=== PATIENT | female | born 1975 | race Caucasian/White ===

== ENCOUNTER 2020-04-25 06:52 | Outpatient (REF) | payer OTHER, SELFPAY ==
[2020-04-25 07:17] LABS: COVID-19 Test Negative (Negative)
== END 2020-04-25 06:53 | disposition home or self-care (01) ==
LOC: HO.LAB 06:52
PROVIDERS: Visit Provider Internal Medicine
DX: Z20.828 Contact with and (suspected) exposure to other viral communicable diseases (principal)
CPT/HCPCS: 87635; C9803

== ENCOUNTER 2020-04-28 07:07 | Outpatient (REF) | payer OTHER, SELFPAY ==
[2020-04-28 08:07] LABS: COVID-19 Test Negative (Negative)
== END 2020-04-28 07:08 | disposition home or self-care (01) ==
LOC: HO.EMPCOV 07:07
PROVIDERS: PCP Internal Medicine; Visit Provider Internal Medicine
DX: Z20.828 Contact with and (suspected) exposure to other viral communicable diseases (principal)
CPT/HCPCS: 87635; C9803

== ENCOUNTER 2020-05-01 06:59 | Outpatient (REF) | payer OTHER, SELFPAY ==
[2020-05-01 07:29] LABS: COVID-19 Test Negative (Negative); IDNOW Serial# 55D5AD1C
[2020-05-03 09:15] LABS: COVID-19 Test Negative (Negative); IDNOW Serial# 55D5AD1C
== END 2020-05-01 07:00 | disposition home or self-care (01) ==
LOC: HO.EMPCOV 06:59
PROVIDERS: Visit Provider Internal Medicine
DX: Z20.828 Contact with and (suspected) exposure to other viral communicable diseases (principal)
CPT/HCPCS: 87635; C9803

== ENCOUNTER 2020-05-16 09:13 | Outpatient (REF) | payer OTHER, SELFPAY ==
[2020-05-16 09:48] LABS: COVID-19 Test Negative (Negative); IDNOW Serial# 55D5AD1C
== END 2020-05-16 09:14 | disposition home or self-care (01) ==
LOC: HO.EMPCOV 09:13
PROVIDERS: Visit Provider Internal Medicine
DX: Z20.828 Contact with and (suspected) exposure to other viral communicable diseases (principal)
CPT/HCPCS: 87635; C9803

== ENCOUNTER 2020-07-25 11:30 | Outpatient (REF) | payer OTHER, SELFPAY ==
[2020-07-25 11:51] LABS: COVID-19 Test Negative (Negative)
== END 2020-07-25 11:31 | disposition home or self-care (01) ==
LOC: HO.EMPCOV 11:30
PROVIDERS: Visit Provider Internal Medicine
DX: Z20.822 Contact with and (suspected) exposure to COVID-19 (principal)
CPT/HCPCS: 36415; 87635; C9803

== ENCOUNTER 2020-10-15 12:30 | Outpatient (REF) | payer OTHER, SELFPAY ==
--- NOTE | ~2020-10-15 | US_ITS ---
EXAMINATION: US THYROID CLINICAL INFORMATION: Nontoxic single thyroid nodule. COMPARISON: Ultrasound soft tissue head/neck thyroid dated 06/26/2019 and 12/27/2018 TECHNIQUE: Linear transducer guillaume-scale and color Doppler examination with attention to the region of the thyroid. FINDINGS: SIZE: Measurements of the thyroid lobes and nodules are given in sagittal, anteroposterior and transverse dimensions respectively. Right Thyroid Lobe: 4.8 x 1.8 x 1.7 cm, volume 7.7 mL. Previously 5.3 x 1.3 x 1.7 cm, volume 5.7 mL. Parenchyma: The gland echotexture is homogeneous. Thyroid vascularity is normal. Left Thyroid Lobe: 3.9 x 1.0 x 1.3 cm, volume 2.8 mL. Previously 4.2 x 1.0 x 1.2 cm, volume 2.7 mL. Parenchyma: The gland echotexture is homogeneous. Thyroid vascularity is normal. Isthmus: 0.5 cm in maximum AP dimension. Previously 0.6 cm. Estimated total number of nodules greater than or equal to 1 cm: 0. 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 Location: Left inferior. Size: 0.3 x 0.2 x 0.2 cm, volume 0.01 mL. Previously: 0.7 x 0.5 x 0.6 cm, volume 0.11 mL. Nodule characteristics: Composition: Solid (2). Echogenicity: Very hypoechoic (3). Shape: Not taller than wide (0). Margins: Smooth (0). Echogenic Foci: None (0). ACR TI-RADS total points: 5 ACR TI-RADS category: 4 Significant change in size (>/= 20% in 2 dimensions and minimal increase of 2 mm or 50% or greater increase in volume): Decreased in size. Change in features: None. Change in ACR TI-RADS risk category: Not applicable. NODES: No lymphadenopathy is seen in the tissue surrounding the thyroid gland. US/US thyroid IMPRESSION: Subcentimeter left thyroid complex nodule lower pole, improved in size from previous study. Recommend 1-year followup. Otherwise, the rest of the thyroid gland ultrasound is unremarkable. ACR TI-RADS RECOMMENDATION REFERENCE: Ultrasound-guided fine-needle aspiration, followup ultrasound, no further followup. * TR1 (0 point) and TR 2 (2 points): No FNA or followup. * TR3 (3 points): FNA if more than or equal to 2.5 cm in maximum dimension, followup ultrasound in 1, 3 and 5 years if 1.5 to 2.4 cm in maximum dimension. * TR4 (4-6 points): FNA if more than or equal to 1.5 cm in maximum dimension, followup ultrasound in 1, 2, 3 and 5 years if 1 to 1.4 cm in maximum dimension. * TR5 (more than or equal to 7 points): FNA if more than or equal to 1 cm in maximum dimension, followup ultrasound every year for 5 years if 0.5 to 0.9 cm in maximum dimension. * TR3, TR4 or TR5 nodules that are below the size threshold for followup receive no followup.
== END 2020-10-15 12:31 | disposition home or self-care (01) ==
LOC: HO.US 12:30
PROVIDERS: PCP Internal Medicine; Visit Provider Internal Medicine
DX: E04.1 Nontoxic single thyroid nodule (principal)
CPT/HCPCS: 76536

== ENCOUNTER 2021-05-11 07:17 | Outpatient (REF) | payer OTHER, SELFPAY ==
--- NOTE | ~2021-05-11 | MM_ITS ---
EXAMINATION: MM SCREENING DIGITAL BREAST TOMOSYNTHESIS, BILATERAL CLINICAL INFORMATION: Screening. Asymptomatic. The lifetime risk of breast cancer based on the Tyrer-Cuzick Model is 15%. COMPARISON: Mammography: 08/15/2017, 09/26/2014 TECHNIQUE: Digital breast tomosynthesis is performed in both the craniocaudal and mediolateral oblique views along with computer-aided detection (CAD). Synthesized 2D images are generated from the tomosynthesis. FINDINGS: There are scattered areas of fibroglandular density (ACR BI-RADS breast composition Category b). There is asymmetry of the breast size, right slightly larger, similar to prior studies. The left breast shows no interval mass or architectural abnormality. Neither breast shows abnormal calcifications. The axilla and skin contours are unremarkable. Small asymmetric density posterior central right breast on CC view 11 cm from nipple is more conspicuous when compared with prior studies. There is no definite correlate on MLO view and this may represent summation artifact and/or shifting island fibroglandular tissue. Patient will be recalled to further characterize. MM/MM tomosynthesis screening BI IMPRESSION: 1. Right: Asymmetric density posterior central breast on CC view, possibly island shifting fibroglandular tissue or summation artifact. 2. Left: No mammographic evidence of malignancy. ASSESSMENT: BI-RADS 0: Incomplete - Need Additional Imaging Evaluation RECOMMENDATION: 1. Additional views of the right breast (spot CC, rolled CC x2). 2. Targeted ultrasound if warranted after review of the additional views. 3. Radiology department staff will contact the patient for additional imaging. This patient's information was entered into a reminder system with a target due date for their next mammogram.
== END 2021-05-11 07:18 | disposition home or self-care (01) ==
LOC: HO.MAMMO 07:17
PROVIDERS: PCP Internal Medicine; Visit Provider Internal Medicine
DX: Z12.31 Encounter for screening mammogram for malignant neoplasm of breast (principal)
CPT/HCPCS: 77063; 77067

== ENCOUNTER 2021-05-14 13:19 | Outpatient (REF) | payer OTHER, SELFPAY ==
--- NOTE | ~2021-05-14 | MM_ITS ---
EXAMINATION: MM DIAGNOSTIC DIGITAL BREAST TOMOSYNTHESIS, RIGHT CLINICAL INFORMATION: Recall from screening for asymmetric density on CC view posterior central breast, possibly island shifting fibroglandular tissue or summation artifact. COMPARISON: Mammography: 05/11/2021, 08/15/2017 TECHNIQUE: Digital breast tomosynthesis is performed. 2D images are generated from the tomosynthesis. The following views are obtained: Spot CC, rolled CC x2. FINDINGS: There are scattered areas of fibroglandular density (ACR BI-RADS breast composition Category b). Additional views show no persistent asymmetric density. There is no mass or architectural abnormality. Results are discussed with the patient at time of visit. MM/MM tomosynthesis added views R IMPRESSION: Additional views show no persistent asymmetric density. ASSESSMENT: BI-RADS 1: Negative RECOMMENDATION: Routine annual mammography screening. This patient's information was entered into a reminder system with a target due date for their next mammogram.
== END 2021-05-14 13:20 | disposition home or self-care (01) ==
LOC: HO.MAMMO 13:19
PROVIDERS: Visit Provider Internal Medicine
DX: R92.2 Inconclusive mammogram (principal)
CPT/HCPCS: 77061; 77065

== ENCOUNTER → 2021-06-29 14:04 | Outpatient (BNVA) | payer OTHER, SELFPAY | PROVIDERS: PCP Internal Medicine; Visit Provider Nurse Practitioner Gerontology | DX: E11.9 Type 2 diabetes mellitus without complications (principal); E66.09 Other obesity due to excess calories; I10 Essential (primary) hypertension; R00.0 Tachycardia, unspecified; Z79.84 Long term (current) use of oral hypoglycemic drugs; Z68.41 Body mass index [BMI] 40.0-44.9, adult | CPT/HCPCS: 82947 ==

== ENCOUNTER → 2021-07-06 08:23 | Outpatient (BNVA) | payer OTHER, SELFPAY | PROVIDERS: PCP Internal Medicine; Referring Provider Internal Medicine; Visit Provider Internal Medicine | DX: R00.0 Tachycardia, unspecified (principal); I10 Essential (primary) hypertension; E11.8 Type 2 diabetes mellitus with unspecified complications | CPT/HCPCS: 93005 ==

== ENCOUNTER 2021-07-06 08:57 | Outpatient (REF) | payer OTHER, SELFPAY ==
[2021-07-06 10:55] LABS: Microalbum/Creatinine Ratio Ur 16.4 ug/mg cr
[2021-07-06 11:07] LABS: Alanine Aminotransferase 20 U/L (0-31); Albumin Level 4.7 g/dL (3.5-5.0); Alkaline Phosphatase 98 U/L (39-117); Anion Gap 17 (12-20); Aspartate Amino Transferase 18 U/L (5-31); Bilirubin Total 1.3 mg/dL (0.0-1.0); Blood Urea Nitrogen 19 mg/dL (9-16); Calcium 10.1 mg/dL (8.4-10.2); Carbon Dioxide 25 mmol/L (22-29); Chloride 100 mmol/L (96-108); Cholesterol 210 mg/dL; Estimated Glomerular Filt Rate 46; Glucose Fasting 177 mg/dL (60-99); HDL Cholesterol 52 mg/dL; LDL Cholesterol Calculated 136 mg/dl; Potassium 4.5 mmol/L (3.3-5.1); Sodium 137 mmol/L (135-145); Total Protein 8.1 g/dL (6.5-8.0); Triglycerides 111 mg/dL
[2021-07-06 11:15] LABS: Free T4 (Free Thyroxine) 1.04 ng/dL (0.71-1.85); Thyroid Stimulating Hormone 0.96 uIU/mL (0.32-4.0); Vitamin D 25-OH Total 10.6 ng/mL (>30)
[2021-07-06 11:33] LABS: Vitamin B12 489 pg/mL (200-900)
[2021-07-07 14:17] LABS: LDL Cholesterol Direct 153 mg/dL (<100)
== END 2021-07-06 08:58 | disposition home or self-care (01) ==
LOC: HO.10HDL 08:57
PROVIDERS: Visit Provider Nurse Practitioner Gerontology
DX: E11.9 Type 2 diabetes mellitus without complications (principal)
CPT/HCPCS: 36415; 80053; 80061; 82043; 82306; 82607; 83721; 84439; 84443

== ENCOUNTER → 2021-07-08 07:24 | Outpatient (REF) | payer OTHER, SELFPAY ==
--- NOTE | 2021-07-08 07:28 | HM_ITS ---
Total monitoring time 4 days and 6 hours. Underlying rhythm is sinus. Minimum heart rate 70/Min. Maximum 163/Min. Average 102/Min. About 50% of the time, ventricular rate > 100/Min. No atrial fibrillation or flutter or AV blocks or pauses. Very rare supraventricular ectopy with minimal burden. Very rare ventricular ectopy with minimal burden. Patient symptoms including dizziness, near-syncope correlate with sinus tachycardia. MTDD
--- NOTE | 2021-07-08 07:28 | CA_ITS ---
Transthoracic Echocardiogram Patient (Last, First, Middle): Ema Pradhan, Gender: Female Date of : 1975 Age: 46 Procedure Date: 07/08/2021 Procedure Type: Transthoracic Echocardiogram Location: OP Height: 160.02 cm Weight: 104.33 kg BSA: 2.05 m2 Heart Rate: bpm BP: 118 / 79 mmHg Car Wiper: OLIVA Referring MD: Yonathan Fu MD Manager Center: Kiran Jimenez MD Symptoms: R00.0 - Tachycardia, unspecified Study Quality: Fair ECG Rhythm: Sinus Conclusions: - 1. Normal LV systolic function with LVEF of 55-60% with grade 1 diastolic dysfunction 2. Normal cardiac valvular Doppler 3. No gross pericardial effusion Findings Left Ventricle Normal left ventricular size, thickness, and systolic function. The visually estimated ejection fraction is between 55-60%. Regional wall motion abnormalities can not be excluded due to suboptimal endocardial definition. Spectral Doppler is indicative of an impaired relaxation filling pattern. E/E prime ratio is <8, consistent with normal filling pressures. Evidence suggests grade I (mild) diastolic dysfunction. Right Ventricle Normal right ventricular cavity size and systolic function. Atria The left atrium is normal in size. There is a mobile atrial septum noted. Interatrial shunt cannot be excluded. The right atrium is normal in size. Aortic Valve The aortic valve structure and function is likely normal. There is no aortic valve stenosis. There is no aortic valve regurgitation. Mitral Valve Likely normal mitral valve structure and function. There is trace mitral valve regurgitation. There is no mitral valve stenosis. Pulmonic Valve The pulmonic valve was not well visualized. Tricuspid Valve The tricuspid valve was not well visualized. Tricuspid regurgitation envelope is inadequate for calculation of right ventricular systolic pressure. Great Vessels All visible segments of the aorta are normal in size. The pulmonary artery was not well visualized. Venous The inferior vena cava is normal in size and collapses greater than 50% with inspiration. Pericardium/Pleural There is no evidence of pericardial effusion. Prior Study Comparison No significant change compared to prior study dated: 07/03/2018. Measurements 2D Linear Measurements IVSd: 1.07 0.6-0.9/0.6-1.0 cm LVIDd: 4.06 3.9-5.3/4.2-5.9 cm LVIDd Index: 1.98 2.4-3.2/2.2-3.1 cm/m2 LVIDs: 2.88 2.0-3.6 cm LVPWd: 0.87 0.7-1.1 cm Ao Root: 3.40 2.1-3.5 cm LA Diam: 3.30 2.7-3.8/3.0-4.0 cm LAIDs Index: 1.61 1.5-2.3 cm/m2 LV Mass: 155.04 67-162/88-224 g LV Mass Index: 75.63 43-95/49-115 g/m2 LVOT Diam: 2.00 3.0+(-)1.3 cm 2D Systolic Function EF 4C: 55.60 >55% EF 2C: 59.50 >55% EF BiP: 56.40 >55% Mitral Valve MV Pk E: 0.54 MV PK A: 0.61 MV Decel Time: 195.00 E/A: 0.90 E'Lateral: 7.83 E'Medial: 6.20 E/E' Med: 8.70 E/E' Lat: 6.90 PHT: 57.00 MVA PHT: 3.86 Decel Spalding: 2.77 Aortic Valve AoV Pk Reynaldo: 1.15 AoV Mn Reynaldo: 0.79 AoV VTI: 0.20 AoV Pk Grad: 5.00 Aov Mn Grad: 3.00 LORENZA Cont.VTI: 2.44 LVOT LVOT Pk Reynaldo: 1.00 LVOT Mn Reynaldo: 0.74 LVOT VTI: 0.16 LVOT Pk Grad: 4.00 LVOT Mn Grad: 2.00 LVOT Diam: 2.00 LVOT Area: 3.14 Diastolic Function MV Pk E: 0.54 MV Pk A: 0.61 E/A: 0.90 E'Medial: 6.20 E/E' Med: 8.70 E' Laterial: 7.83 E/E' Lat: 6.90 Right Ventricle TAPSE (mm): 16.30 TVS' Reynaldo: 7.94 Tricuspid Valve TR Pk Reynaldo: 1.34 TR Pk Grad: 7.00 Great Vessels Aorta Ao Root-2D: 3.40 2.0-3.7 cm Ao Asc: 3.20 2.1-3.4 cm Ao Arch: 2.90 Updated in Other Vendor System with Status of Final Kiran Jimenez MD electronically signed on 07/08/2021 7:15:57 PM with status of Final
== END ==
LOC: HO.CARD 07:24
PROVIDERS: Visit Provider Internal Medicine
DX: R00.0 Tachycardia, unspecified (principal)
CPT/HCPCS: 93242; 93306

== ENCOUNTER → 2021-07-16 13:20 | Outpatient (BNVA) | payer OTHER, SELFPAY | PROVIDERS: PCP Internal Medicine; Visit Provider Dietitian, Registered | DX: E11.8 Type 2 diabetes mellitus with unspecified complications (principal); Z71.3 Dietary counseling and surveillance | CPT/HCPCS: 97802 ==

== ENCOUNTER → 2021-08-27 12:39 | Outpatient (BNVA) | payer OTHER, SELFPAY | PROVIDERS: PCP Internal Medicine; Visit Provider Dietitian, Registered | DX: E11.8 Type 2 diabetes mellitus with unspecified complications (principal) | CPT/HCPCS: 97803 ==

== ENCOUNTER → 2021-09-29 07:16 | Outpatient (BNVA) | payer OTHER, SELFPAY | PROVIDERS: PCP Internal Medicine; Visit Provider Nurse Practitioner Gerontology | DX: E11.9 Type 2 diabetes mellitus without complications (principal); E78.5 Hyperlipidemia, unspecified; E66.09 Other obesity due to excess calories; R00.0 Tachycardia, unspecified; I10 Essential (primary) hypertension; Z79.84 Long term (current) use of oral hypoglycemic drugs; Z68.39 Body mass index [BMI] 39.0-39.9, adult | CPT/HCPCS: 82947 ==

== ENCOUNTER → 2021-10-15 15:02 | Outpatient (BNVA) | payer OTHER, SELFPAY | PROVIDERS: PCP Internal Medicine; Referring Provider Internal Medicine; Visit Provider Internal Medicine | DX: R00.0 Tachycardia, unspecified (principal) ==

== ENCOUNTER → 2021-10-28 12:34 | Outpatient (BNVA) | payer OTHER, SELFPAY | PROVIDERS: PCP Internal Medicine; Visit Provider Dietitian, Registered | DX: E11.8 Type 2 diabetes mellitus with unspecified complications (principal) | CPT/HCPCS: 97803 ==

== ENCOUNTER 2021-11-17 12:26 | Outpatient (REF) | payer OTHER, SELFPAY ==
--- NOTE | ~2021-11-17 | US_ITS ---
EXAMINATION: US THYROID CLINICAL INFORMATION: Thyroid nodule. COMPARISON: Ultrasound 10/15/2020 and 06/26/2019. TECHNIQUE: Linear transducer grayscale and color Doppler examination with attention to the region of the thyroid. FINDINGS: SIZE: Measurements of the thyroid lobes and nodules are given in sagittal, anteroposterior and transverse dimensions respectively. Right Thyroid Lobe: 5.1 x 1.9 x 1.6 cm, volume 8.0 mL. Previously 4.8 x 1.8 x 1.7 cm, volume 7.7 mL. Parenchyma: The gland echotexture is homogeneous. Thyroid vascularity is normal. Left Thyroid Lobe: 4.2 x 1.1 x 1.4 cm, volume 3.3 mL. Previously 3.9 x 1.0 x 1.3 cm, volume 2.8 mL. Parenchyma: The gland echotexture is homogeneous. Thyroid vascularity is normal. Isthmus: 0.6 cm in maximum AP dimension. Previously 0.5 cm. Estimated total number of nodules greater than or equal to 1 cm: 0. Final Assembly Inspector nodules are described as follows: 1. Location: Left inferior. Size: 0.4 x 0.2 x 0.4 cm, volume 0.02 mL. Previously: 0.3 x 0.2 x 0.2 cm, volume 0.01 mL. Nodule characteristics: Composition: Cystic(0). ACR TI-RADS total points: 0 Previous: 5 ACR TI-RADS category: 1 Previous: 4 Significant change in size (>/= 20% in 2 dimensions and minimal increase of 2 mm or 50% or greater increase in volume): None Change in features: None Change in ACR TI-RADS risk category: Significantly improved. NODES: No lymphadenopathy is seen in the tissue surrounding the thyroid gland. US/US thyroid IMPRESSION: Stable left thyroid nodule. Unremarkable thyroid gland. ACR TI-RADS RECOMMENDATION REFERENCE: Ultrasound-guided fine-needle aspiration, followup ultrasound, no further follow up. * TR1 (0 point) and TR 2 (2 points): No FNA or follow up * TR3 (3 points): FNA if more than or equal to 2.5 cm in maximum dimension, followup ultrasound in 1, 3 and 5 years if 1.5 to 2.4 cm in maximum dimension. * TR4 (4-6 points): FNA if more than or equal to 1.5 cm in maximum dimension, followup ultrasound in 1, 2, 3 and 5 years if 1 to 1.4 cm in maximum dimension. * TR5 (more than or equal to 7 points): FNA if more than or equal to 1 cm in maximum dimension, followup ultrasound every year for 5 years if 0.5 to 0.9 cm in maximum dimension. * TR3, TR4 or TR5 nodules that are below the size threshold for follow up receive no follow up.
== END 2021-11-17 12:27 | disposition home or self-care (01) ==
LOC: HO.US 12:26
PROVIDERS: Visit Provider Internal Medicine
DX: E04.1 Nontoxic single thyroid nodule (principal)
CPT/HCPCS: 76536

== ENCOUNTER 2022-05-12 12:27 | Outpatient (REF) | payer OTHER, SELFPAY ==
--- NOTE | ~2022-05-12 | MM_ITS ---
EXAMINATION: MM SCREENING DIGITAL BREAST TOMOSYNTHESIS, BILATERAL CLINICAL INFORMATION: Screening. Asymptomatic. The lifetime risk of breast cancer based on the Tyrer-Cuzick Model is 5%. COMPARISON: Mammography: 05/14/2021, 05/11/2021, 08/15/2017 TECHNIQUE: Digital breast tomosynthesis is performed in both the craniocaudal and mediolateral oblique views along with computer-aided detection (CAD). Synthesized 2D images are generated from the tomosynthesis. FINDINGS: There are scattered areas of fibroglandular density (ACR BI-RADS breast composition Category b). There are no significant masses, abnormal calcifications, or other abnormalities. There is chronic asymmetry of the breast size, right slightly larger similar to prior studies. Scattered minor parenchymal asymmetries are stable. No developing density or architectural abnormality. No significant changes. MM/MM tomosynthesis screening BI IMPRESSION: No mammographic evidence of malignancy. ASSESSMENT: BI-RADS 2: Benign RECOMMENDATION: Routine annual mammography screening. This patient's information was entered into a reminder system with a target due date for their next mammogram.
== END 2022-05-12 12:28 | disposition home or self-care (01) ==
LOC: HO.MAMMO 12:27
PROVIDERS: PCP Internal Medicine; Visit Provider Internal Medicine
DX: Z12.31 Encounter for screening mammogram for malignant neoplasm of breast (principal)
CPT/HCPCS: 77063; 77067

== ENCOUNTER 2022-09-02 07:10 | Outpatient (REF) | payer OTHER, SELFPAY ==
[2022-09-02 08:25] LABS: Anion Gap 14 (12-20); Blood Urea Nitrogen 30 mg/dL (9-16); Calcium 10.2 mg/dL (8.4-10.2); Carbon Dioxide 28 mmol/L (22-29); Chloride 99 mmol/L (96-108); Cholesterol 216 mg/dL; Estimated Glomerular Filt Rate 33; Glucose Random 150 mg/dL (60-115); HDL Cholesterol 55 mg/dL; LDL Cholesterol Calculated 131 mg/dl; Potassium 4.2 mmol/L (3.3-5.1); Sodium 137 mmol/L (135-145); Triglycerides 152 mg/dL
[2022-09-02 11:06] LABS: Creatinine Urine 190.46 mg/dL; Microalbum/Creatinine Ratio Ur 8.4 ug/mg cr
== END 2022-09-02 07:11 | disposition home or self-care (01) ==
LOC: HO.LAB 07:10
PROVIDERS: PCP Internal Medicine; Visit Provider Internal Medicine Endocrinology, Diabetes & Metabolism
DX: E11.8 Type 2 diabetes mellitus with unspecified complications (principal)
CPT/HCPCS: 36415; 80048; 80061; 82043

== ENCOUNTER → 2022-09-03 07:44 | Outpatient (BNVA) | payer OTHER, SELFPAY | PROVIDERS: PCP Internal Medicine; Visit Provider Internal Medicine Endocrinology, Diabetes & Metabolism | DX: E11.8 Type 2 diabetes mellitus with unspecified complications (principal) | CPT/HCPCS: 83036 ==

== ENCOUNTER 2022-09-10 08:14 | Outpatient (REF) | payer OTHER, SELFPAY ==
[2022-09-10 12:49] LABS: Blood Urea Nitrogen 15 mg/dL (9-16); Estimated Glomerular Filt Rate 45
== END 2022-09-10 08:15 | disposition home or self-care (01) ==
LOC: HO.10HDL 08:14
PROVIDERS: Visit Provider Internal Medicine Endocrinology, Diabetes & Metabolism
DX: E11.9 Type 2 diabetes mellitus without complications (principal)
CPT/HCPCS: 36415; 82565; 84520

== ENCOUNTER 2023-05-16 12:28 | Outpatient (REF) | payer OTHER, SELFPAY | END 2023-05-16 12:29 | disposition home or self-care (01) | LOC: HO.MAMMO 12:28 | PROVIDERS: PCP Internal Medicine; Visit Provider Internal Medicine | DX: Z12.31 Encounter for screening mammogram for malignant neoplasm of breast (principal) | CPT/HCPCS: 77063; 77067 ==

== ENCOUNTER → 2023-05-16 12:30 | Outpatient (BNV) | payer OTHER, SELFPAY | PROVIDERS: PCP Internal Medicine; Visit Provider Radiology Diagnostic Radiology | DX: Z12.31 Encounter for screening mammogram for malignant neoplasm of breast (principal) | CPT/HCPCS: 77063; 77067 ==

== ENCOUNTER 2023-08-05 07:37 | Outpatient (REF) | payer OTHER, SELFPAY ==
[2023-08-05 08:06] LABS: MANUAL DIFF FLAG NO
[2023-08-05 08:17] LABS: Basophils Absolute Auto 0.1 X10*3/uL (0.0-0.2); Basophils Percent Auto 0.9 % (0-2); Eosinophils Absolute Auto 0.5 X10*3/uL (0.0-0.4); Eosinophils Percent Auto 6.3 % (0-4); Hematocrit 37.3 % (37.0-47.0); Hemoglobin 12.2 g/dl (12.0-16.0); Imm Gran Abs Auto 0.04 X10*3/uL (0.00-0.03); Imm Gran Pct Auto 0.5 % (0.0-0.4); Lymphocytes Absolute Auto 1.8 X10*3/uL (1.2-4.9); Lymphocytes Percent Auto 22.2 % (20-40); Mean Corpuscular HGB Conc 32.7 g/dl (31.0-35.0); Mean Corpuscular Hemoglobin 28.2 pg (27.0-33.0); Mean Corpuscular Volume 86.1 fL (80.0-98.0); Mean Platelet Volume 9.3 fL (9.4-12.3); Monocytes Absolute Auto 0.7 X10*3/uL (0.1-1.2); Monocytes Percent Auto 8.8 % (2-11); Neutrophils Percent Auto 61.3 % (45-73); Platelet Count 275 X10*3/uL (160-400); Red Blood Count 4.33 X10*6/uL (4.20-5.50); Red Cell Distribution Width 12.5 % (11.0-16.0); White Blood Count 8.2 X10*3/uL (4.8-10.8)
[2023-08-05 08:51] LABS: Estimated Average Glucose 117 mg/dL; Hemoglobin A1c % 5.7 % (<6.0)
[2023-08-05 08:59] LABS: Appearance Urine Clear; Color Urine Yellow; Glucose Urine UA Negative (Negative); Leukocyte Esterase Urine Trace (Negative); Nitrite Urine Negative (Negative); PH 5.5 (5.0-9.0); UMIC TRIGGER UACC YES; Urine Blood Negative (Negative); Urine Ketones Negative (Negative); Urine Protein Negative (Neg-Trace)
[2023-08-05 09:06] LABS: Bacteria Urine Trace (None Seen); Hyaline Casts Urine 0-2 /LPF (0-2); RBC Urine 0-2 /HPF (0-2); WBC Urine 0-5 /HPF (0-5)
[2023-08-05 09:07] LABS: Alanine Aminotransferase 10 U/L (0-31); Albumin Level 4.1 g/dL (3.5-5.0); Alkaline Phosphatase 112 U/L (39-117); Anion Gap 12 (12-20); Aspartate Amino Transferase 12 U/L (5-31); Blood Urea Nitrogen 16 mg/dL (9-16); Calcium 9.7 mg/dL (8.4-10.2); Carbon Dioxide 30 mmol/L (22-29); Chloride 100 mmol/L (96-108); Cholesterol 195 mg/dL (<200); Estimated Glomerular Filt Rate 52; Glucose Fasting 127 mg/dL (60-99); HDL Cholesterol 58 mg/dL (>40); LDL Cholesterol Calculated 121 mg/dL (<100); Potassium 4.4 mmol/L (3.3-5.1); Sodium 138 mmol/L (135-145); Total Protein 7.3 g/dL (6.5-8.0); Triglycerides 81 mg/dL (<150)
[2023-08-05 09:22] LABS: Creatinine Urine 132.31 mg/dL; Microalbumin Urine < 5.0 mg/L
== END 2023-08-05 07:38 | disposition home or self-care (01) ==
LOC: HO.LAB 07:37
PROVIDERS: PCP Internal Medicine; Visit Provider Internal Medicine
DX: Z00.00 Encounter for general adult medical examination without abnormal findings (principal); E11.9 Type 2 diabetes mellitus without complications; I10 Essential (primary) hypertension; E78.00 Pure hypercholesterolemia, unspecified
CPT/HCPCS: 36415; 80053; 80061; 81001; 82043; 82570; 83036; 85025

== ENCOUNTER 2023-09-12 07:23 | Outpatient (AMB) | payer OTHER, SELFPAY ==
--- NOTE | 2023-09-12 07:41 | MHC.OFFVIS ---
Intake Vital Signs 09/12/23 07:43 Height 5 ft 4 in Weight 232 lb BMI 39.8 BP 119/74 Blood Pressure Location Lt brachial Position Sitting Pulse 104 H Intake Visit Reasons: Colonoscopy screening Intake Note: Patient new consult for 1st pre Colonoscopy screening. Patient denies any GI issues. Commission Clerk Required: No Accompanied by: Self / Same As Patient Allergies No Known Allergies Allergy (Verified 09/03/22 07:48) Medication List - Last Reconciled 09/12/23 by Aileen Eubanks PA-C atorvastatin 20 mg PO BEDTIME blood sugar diagnostic (FreeStyle Lite Strips) As directed 3 times day blood sugar diagnostic (FreeStyle Lite Strips) As directed three times a day blood-glucose meter (FreeStyle [place] Lite kit) As directed 3 times day blood-glucose sensor (PharmAssistant G7 Sensor device) As directed change every 10 days cholecalciferol (vitamin D3) 1,250 mcg PO QWEEK cholecalciferol (vitamin D3) 50 mcg PO DAILY cyclobenzaprine 5 mg PO BID PRN ibuprofen 800 mg PO TID PRN lancets (FreeStyle Lancets) As directed lisinopril-hydrochlorothiazide 10-12.5 mg 1 tab PO DAILY metoprolol tartrate 12.5 mg (1/2 x 25 mg) PO BID 90 days tirzepatide (Mounjaro) 5 mg (0.5 mL) subcut QWEEK HPI HPI Comments History of Present Illness Details A 48 y/o female referred for index screen- Appetite good- Bowels normal No cardiac or respiratory No N/V/D - abdominal , hematemesis, hematochezia fever or chills PFSH Medical History (Updated 09/12/23 @ 08:18 by Aileen Eubanks PA-C) Vitamin D deficiency Hyperlipidemia Obesity due to excess calories Essential hypertension DM2 (diabetes mellitus, type 2) Surgical History Hx of cervical spine surgery Family History Mother Arthritis, rheumatoid Father Alcoholism Suicide Maternal Grandfather Diabetes Maternal Aunt Breast cancer Brother Suicide Paternal Grandfather Diabetes Social History (Updated 04/01/24 @ 08:15 by Aileen Eubanks PA-C) Household Members: Significant Other Alcohol intake: current Alcohol intake frequency: holidays/special occasions only Patient Tobacco Use Status: Never used Tobacco Current occupational status: employed 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[employer], 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 Review of Systems Const All systems reviewed & are unremarkable except as noted in HPI and below Card Denies chest pain and Denies dyspnea Resp Denies dyspnea GI Denies abdominal pain and Denies change in bowel habits Physical Exam Vital Signs: Last Vital Signs Pulse 104 H 09/12/23 07:43 BP 119/74 09/12/23 07:43 BMI result Body Mass Index 39.8 Const General: cooperative, healthy appearing and comfortable Orientation/consciousness: patient oriented x3 Limitations: no limitations Eyes Sclerae: sclerae normal Resp Effort & Inspection: normal respiratory effort and able to speak in complete sentences Auscultation: clear to auscultation bilaterally Cardio Rate: tachycardic (Sep) Heart sounds: S1 normal heart sound present and S2 normal heart sound present Skin General skin exam: no rashes or lesions noted Neuro General: patient oriented x3 Extrem General: Yes full ROM Psych Appearance: grossly normal and well kempt Mental Status: mental status grossly normal Speech and movement: Normal speech and movement present and Clear speech present Affect: normal affect Attitude: cooperative Thought process: Normal thought process present Thought content: Normal thought content present Insight: Good insight present (Psych) Judgement: Good judgement present (Psych) Assessment & Plan Assessment & Plan (1) Tachycardia: Comment: History tachycardia has had cardiac workup patient reports as negative Code(s): R00.0 - Tachycardia, unspecified Plan: Sep- (2) Encounter for screening colonoscopy: Comment: Discussed procedure, rare risks need for escorted due to anesthesia Code(s): Z12.11 - Encounter for screening for malignant neoplasm of colon Plan: Index screening colonoscopy Plan Index screening colonoscopy MiraLax Gatorade prep Mounjaro must be discontinue 7 full days prior to procedure Orders: Orders Colonoscopy - GI Use Only Today Z12.11 - Encounter for screening for malignant neoplasm of colon Medications: New polyethylene glycol 3350 (Miralax) Take as directed by mouth the day before your procedure. 238 grams PO ONCE 1 day PRN 238 grams 0RF laxative effect bisacodyl (Dulcolax (bisacodyl)) Day before procedure @ 12 noon Take 4 tablets by mouth followed by large glass of water 20 mg (4 x 5 mg) PO ONCE 1 day PRN 4 tabs 0RF colonoscopy prep Z12.11 - Encounter for screening for malignant neoplasm of colon Patient Instructions: Very pleasant 48-year-old female referred for Index screening colonoscopy MiraLax Gatorade prep, reviewed literature My general must be discontinued 1 week prior to proceed No major barriers to understanding were Encouraged to call questions or concerns Coding Level of Care Code New Pt Level 3 (67315) Diagnoses Tachycardia R00.0 Encounter for screening colonoscopy Z12.11 Time Spent (min) 20
[2023-09-12 07:43] VITALS: BP 119/74; PULSE 104; BMI 39.8
== END 2023-09-12 08:05 | disposition home or self-care (01) ==
PROVIDERS: PCP Internal Medicine; Visit Provider Physician Assistant
DX: R00.0 Tachycardia, unspecified (principal); Z12.11 Encounter for screening for malignant neoplasm of colon
CPT/HCPCS: 99203

== ENCOUNTER → 2023-09-12 07:23 | Outpatient (BNVA) | payer OTHER, SELFPAY | PROVIDERS: PCP Internal Medicine; Visit Provider Physician Assistant ==

== ENCOUNTER 2024-01-17 07:43 | Day surgery (SDC) | payer OTHER, SELFPAY ==
[2024-01-17 08:28] VITALS: BP 150/100; PULSE 94; RESP 18; TEMP 36.4; O2SAT 96; BMI 39.9
[2024-01-17 08:35] LABS: UPreg QC Valid YES; Urine Pregnancy NEGATIVE (NEGATIVE)
[2024-01-17 08:36] VITALS: BP 131/91
--- NOTE | 2024-01-17 08:36 | P.HPSUR_ITS ---
Pre-Procedural Eval Section A - 24 Hr Update-Section A only Date of Service: 01/17/24 Section B - Complete if H&P > 30 days Chief Complaint: Encounter for screening for malignant neoplasm of Relevant Family History (Specify if Yes): No Relevant Social History: None Present Medications: see Short Stay Collaborative assessment Medical History: Significant History (Vitamin D deficiency Hyperlipidemia Obes ity due to excess calories Essential hypertension DM2 (diabetes mellitus, type 2)) History of Previous Operations: Relevant previous surgery/procedure and date(s) (Hx of cervical spine surgery) Allergies: Allergies Allergy/AdvReac Type Severity Reaction Status Date / Time No Known Allergies Allergy Verified 09/03/22 07:48 Review of Systems Sugical H&P ROS: Negative: Constitution, Cardiovascular, Respiratory, Neurological, Psychiatric, Hem-Onc, Allergic/Immunologic, Gastrointestinal, Genitourinary, Musculoskeletal, Integumentary, Endocrine and Eyes/Ears/Nose/Throat Exam Surgical H&P Exam: Normal: HEENT, Normal: Heart, Normal: Lungs, Normal: Extremities, Normal: Abdomen, Normal: Skin and Normal: Neurological Plan Diagnosis/Plan: Unchanged I have reviewed the history and physical and performed a pertinent physical examination on my patient. No changes have occurred unless specified. Time Spent With Patient Time: Total time managing care of this patient today ____ minutes.
[2024-01-17] MEDS: Lactated Ringers 1,000 ML 100 ML IVCONT (08:45)
--- NOTE | 2024-01-17 08:45 | HO.ANESPROP2 ---
Documented by User: Desiree Apodaca NP 01/16/24 08:27 HPI - Anesthesia Eval Consult details Narrative: 49yo F for Colonoscopy Anesthesia Pre-Procedure Meds Is the patient on any of the following meds?: GLP1/DPP4 PMFSH Active Problems Active Problems: All Active Problems Encounter for screening colonoscopy (Acute) Hyperlipidemia (Acute) Vitamin D deficiency (Acute) Type 2 diabetes mellitus with unspecified complications (Acute) Tachycardia (Acute) Obesity due to excess calories (Acute) DM2 (diabetes mellitus, type 2) (Acute) Essential hypertension (Acute) Past Medical History Medical History Hx of supraventricular tachycardia Hx of bundle branch block Vitamin D deficiency Hyperlipidemia Obesity due to excess calories Essential hypertension DM2 (diabetes mellitus, type 2) Family History Family History Mother Arthritis, rheumatoid Father Alcoholism Suicide Maternal Grandfather Diabetes Maternal Aunt Breast cancer Brother Suicide Paternal Grandfather Diabetes Surgical History Surgical History Hx of cervical spine surgery Social History Social History (Updated 09/12/23 @ 08:15 by Aileen Eubanks PA-C) Household Members: Significant Other Alcohol intake: current Alcohol intake frequency: does not drink Patient Tobacco Use Status: Never used Tobacco Are you DNR?: No Advance Directives: No Advance Directives Information Provided: Yes Patient : No FDLMP: 2mths ago Current occupational status: employed 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[employer], 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 Allergies Allergy/AdvReac Type Severity Reaction Status Date / Time No Known Allergies Allergy Verified 09/03/22 07:48 Home Medications ?Medication ?Instructions ?Recorded ?Confirmed ?Last Taken ?Type blood sugar diagnostic (FreeStyle #10 ea 06/29/21 09/12/23 Unknown History Lite Strips) blood-glucose meter (FreeStyle #1 ea 06/29/21 09/12/23 Unknown History [place] Lite kit) lancets 28 gauge (FreeStyle #100 ea 06/29/21 09/12/23 Unknown History Lancets) lisinopril 10 1 tab PO DAILY 06/29/21 10/15/21 Unknown History mg-hydrochlorothiazide 12.5 mg tablet Exam Narrative Narrative: ECHO 2022 Conclusions: - 1. Normal LV systolic function with LVEF of 55-60% with grade 1 diastolic dysfunction 2. Normal cardiac valvular Doppler 3. No gross pericardial effusion Assessment and Plan Assessment Anesthesia Assessment: Chart Reviewed Documented by User: Nancy Orlando DO 01/17/24 08:49 HPI - Anesthesia Eval Anesthesia Pre-Procedure Meds Is the patient on any of the following meds?: GLP1/DPP4 (last dose 2 weeks ago) PMFSH Past Medical History Medical History Hx of supraventricular tachycardia Hx of bundle branch block Vitamin D deficiency Hyperlipidemia Obesity due to excess calories Essential hypertension DM2 (diabetes mellitus, type 2) Family History Family History Mother Arthritis, rheumatoid Father Alcoholism Suicide Maternal Grandfather Diabetes Maternal Aunt Breast cancer Brother Suicide Paternal Grandfather Diabetes Family history of problems with anesthesia: No Surgical History Surgical History Hx of cervical spine surgery History of Problems with Anesthesia: No Social History Social History (Updated 09/12/23 @ 08:15 by Aileen Eubanks PA-C) Household Members: Significant Other Alcohol intake: current Alcohol intake frequency: does not drink Patient Tobacco Use Status: Never used Tobacco Are you DNR?: No Advance Directives: No Advance Directives Information Provided: Yes Patient : No FDLMP: 2mths ago Current occupational status: employed 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[employer], 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 Allergies Allergy/AdvReac Type Severity Reaction Status Date / Time No Known Allergies Allergy Verified 09/03/22 07:48 Home Medications ?Medication ?Instructions ?Recorded ?Confirmed ?Last Taken ?Type blood sugar diagnostic (FreeStyle #10 ea 06/29/21 09/12/23 Unknown History Lite Strips) blood-glucose meter (FreeStyle #1 ea 06/29/21 09/12/23 Unknown History [place] Lite kit) lancets 28 gauge (FreeStyle #100 ea 06/29/21 09/12/23 Unknown History Lancets) lisinopril 10 1 tab PO DAILY 06/29/21 10/15/21 Unknown History mg-hydrochlorothiazide 12.5 mg tablet Exam Exam Date and Time: January 17, 2024 0846 Height,Weight and Vital Signs: Height 5 ft 4 in Weight 105.46 kg Vital Signs Temperature 97.5 F 01/17/24 08:28 Pulse Rate 94 01/17/24 08:28 Respiratory Rate 18 01/17/24 08:28 Blood Pressure 150/100 H 01/17/24 08:28 Pulse Oximetry 96 01/17/24 08:28 Oxygen Delivery Method Room Air 01/17/24 08:28 Temperature 97.5 F 01/17/24 08:28 Pulse Rate 94 01/17/24 08:28 Respiratory Rate 18 01/17/24 08:28 Blood Pressure 131/91 H 01/17/24 08:36 Pulse Oximetry 96 01/17/24 08:28 Oxygen Delivery Method Room Air 01/17/24 08:28 Airway Mallampati Class: II TM Dist: >3cm Neck ROM: Full Loose/Missing/Broken Teeth: Yes (broken molar left upper jaw) Heart: S1S2 Lungs: CTAB Assessment and Plan Assessment Anesthesia Assessment: Anesthesia Plan Discussed and Chart Reviewed Final Anesthetic Review Family History of Problems with Anesthesia: No History of Problems with Anesthesia: No NPO: Yes ASA Class: II Final Preanesthetic Review: No Changes in Pt Med Stat, Meds/Allgs Chart Reviewed, Consent Obtained/Reviewed and Anes Risks/Benef Reviewed Patient Risk: Low Procedure Risk: Low Anesthetic Plan Anesthetic Plan: MAC: and Agree w/ Assess. and Plan Disposition: Standard PACU
[2024-01-17 08:53] LABS: Glucose, Whole Blood 127 mg/dL (60-115)
--- NOTE | 2024-01-17 09:46 | HO.OPN-COLON ---
Colonoscopy Operative Note Operative Note Date of Service: 01/17/24 Narrative: Operative Information Procedure Description: Colonoscopy Indication: screening Anesthesia: MAC COLONOSCOPY Instrument: Olympus variable stiffness pediatric scope 190L Colonoscopy Monitoring: Vital signs and clinical assessment, continuous EKG monitoring, Pulse oximetry, Carbon Dioxide monitoring and blood pressure monitoring were done throughout the procedure. Colon withdrawal time was 8 minutes. Procedure: The patient was placed in the left lateral decubitis position and pre-procedure medications were administered. After a digital rectal examination of the ano-rectum, the video colonoscope was inserted into the rectum and advanced through the colon to the cecum/TI. The colonoscope was slowly withdrawn in a retrograde panoramic fashion and the colon mucosa was carefully examined including a retroflexed view of the rectum. Findings and interventions are described below. Procedure Difficulty: easy Findings: Terminal Ileum-normal Cecum:normal Right sided retroflexion- normal Ascending Colon: normal Transverse Colon -normal Descending Colon:normal Sigmoid Colon: normal Rectum: Retroflexion with small internal hemorrhoids seen, grade I Anorectum - normal Intervention: none Colon preparation: Thaxton Bowel Preparation Scale Right colon; 2 Transverse colon: 2 Left colon; 1-2 (0 = Unprepared colon segment with mucosa not seen due to solid stool that cannot be cleared. 1 = Portion of mucosa of the colon segment seen, but other areas of the colon segment not well seen due to staining, residual stool and/or opaque liquid. 2 = Minor amount of residual staining, small fragments of stool and/or opaque liquid, but mucosa of colon segment seen well. 3 = Entire mucosa of colon segment seen well with no residual staining, small fragments of stool or opaque liquid) Impression and Post Procedure Diagnosis: internal hemorrhoids Plan: High fiber diet leaflet Avoid straining at stool, epsom salts and sitz bath, anusol supps or cream Repeat Colonoscopy in 5 years due to areas of fair prep on the left or earlier if clinically indicated Above findings were reviewed with the patient and relevant handouts were provided if indicated.
[2024-01-17 09:49] VITALS: BP 107/72; PULSE 83; RESP 14; TEMP 36.2; O2SAT 97
[2024-01-17 10:04] VITALS: BP 126/60; PULSE 80; RESP 16; TEMP 36.2; O2SAT 99
== END 2024-01-17 10:24 | disposition home or self-care (01) ==
PROVIDERS: Nurse Practitioner; PCP Internal Medicine; Visit Provider Internal Medicine Gastroenterology
PROC: 0DJD8ZZ Inspection of Lower Intestinal Tract, Via Natural or Artificial Opening Endoscopic (ICD-10-PCS; CPT 45378; principal; 2024-01-17 09:50)
DX: Z12.11 Encounter for screening for malignant neoplasm of colon (principal); K64.0 First degree hemorrhoids; I10 Essential (primary) hypertension; R00.0 Tachycardia, unspecified; E11.9 Type 2 diabetes mellitus without complications; E78.5 Hyperlipidemia, unspecified; E55.9 Vitamin D deficiency, unspecified; E66.01 Morbid (severe) obesity due to excess calories; Z68.39 Body mass index [BMI] 39.0-39.9, adult; Z79.1 Long term (current) use of non-steroidal anti-inflammatories (NSAID); Z79.899 Other long term (current) drug therapy
CPT/HCPCS: 45378; 81025; 82947; J2704

== ENCOUNTER → 2024-01-17 07:43 | Outpatient (BNV) | payer OTHER, SELFPAY | PROVIDERS: PCP Internal Medicine; Visit Provider Internal Medicine Gastroenterology | DX: Z12.11 Encounter for screening for malignant neoplasm of colon (principal); K64.0 First degree hemorrhoids | CPT/HCPCS: 45378 ==

== ENCOUNTER 2024-02-03 10:33 | Outpatient (REF) | payer OTHER, SELFPAY ==
[2024-02-03 11:38] LABS: Estimated Average Glucose 143 mg/dL; Hemoglobin A1c % 6.6 % (<6.0)
[2024-02-03 11:48] LABS: Alanine Aminotransferase 10 U/L (0-31); Albumin Level 4.3 g/dL (3.5-5.0); Alkaline Phosphatase 105 U/L (39-117); Aspartate Amino Transferase 13 U/L (5-31); Bilirubin Direct 0.4 mg/dL (0.0-0.5); Bilirubin Total 1.4 mg/dL (0.0-1.0); Cholesterol 142 mg/dL (<200); Glucose Fasting 137 mg/dL (60-99); HDL Cholesterol 60 mg/dL (>40); LDL Cholesterol Calculated 65 mg/dL (<100); Total Protein 7.5 g/dL (6.5-8.0); Triglycerides 88 mg/dL (<150)
[2024-02-03 14:19] LABS: Reflex LDLD? No
== END 2024-02-03 10:34 | disposition home or self-care (01) ==
LOC: HO.LNP 10:33
PROVIDERS: Visit Provider Internal Medicine
DX: E11.9 Type 2 diabetes mellitus without complications (principal); E78.00 Pure hypercholesterolemia, unspecified
CPT/HCPCS: 80061; 80076; 82947; 83036

== ENCOUNTER 2024-02-27 10:53 | Emergency (ER) | payer OTHER, SELFPAY ==
[2024-02-27 11:10] VITALS: BP 151/99; PULSE 101; RESP 18; TEMP 37.2; O2SAT 100; BMI 35.0
--- NOTE | 2024-02-27 11:14 | ED_ITS ---
HPI - Neck Pain/Injury General Chief Complaint: Neck Pain/Injury Stated Complaint: Neck Pain No Injury Time Seen by Provider: 02/27/24 11:14 Source: patient Mode of arrival: ambulatory Limitations: no limitations History of Present Illness ED Provider: YUNI MONAHAN PA-C HPI Narrative: 49 year old female with pmhx significant for T2DM and HTN presents to the ED today for evaluation of atraumatic neck pain on waking this morning. Pain isolated to the right side of her neck, worse with turning her head to the right. Reports that she can feel her muscle spasming. States she sleeps with her dogs and cats in her bed and thinks she slept wrong. Reports attempting to self massage the area causing a shooting pain down her right arm that has since resolved. Denies injury or blunt trauma. Denies fall. Denies recent heavy lifting. Denies numbness/tingling/weakness of the upper extremities. Related Data Home Medications ?Medication ?Instructions ?Recorded ?Confirmed blood sugar diagnostic (FreeStyle #10 ea 06/29/21 09/12/23 Lite Strips) blood-glucose meter (FreeStyle #1 ea 06/29/21 09/12/23 [place] Lite kit) lancets 28 gauge (FreeStyle #100 ea 06/29/21 09/12/23 Lancets) lisinopril 10 1 tab PO DAILY 06/29/21 10/15/21 mg-hydrochlorothiazide 12.5 mg tablet Previous Rx's ?Medication ?Instructions ?Recorded blood sugar diagnostic (FreeStyle #100 ea 09/29/21 Lite Strips) atorvastatin 20 mg tablet 20 mg PO BEDTIME #90 tabs 09/03/22 tirzepatide 5 mg/0.5 mL 5 mg (0.5 mL) subcut QWEEK #2 mL 10/26/22 subcutaneous pen injector (Mounjaro) blood-glucose sensor (Security Scorecard G7 #3 ea 07/11/23 Sensor device) cyclobenzaprine 5 mg tablet 5 mg PO Q8H #10 tabs 02/27/24 lidocaine 5 % topical patch 1 patch topical DAILY #15 ea 02/27/24 (Lidoderm) Allergies Allergy/AdvReac Type Severity Reaction Status Date / Time No Known Allergies Allergy Verified 02/27/24 11:13 Review of Systems Review of Systems: Constitutional: No fever, chills, fatigue, night sweats, weight changes ENT/Mouth: No ear pain, hearing loss, nasal congestion, sinus pain, rhinorrhea, sore throat Eyes: No eye pain, swelling, redness, vision changes, discharge Cardio: No chest pain, palpitations, [place], orthopnea, peripheral edema Pulm: No SOB, cough, sputum, wheezing, dyspnea, hemoptysis GI: No nausea, vomiting, hematemesis, abdominal pain, diarrhea, constipation, hematochezia, melena : No irregular bleeding, dysuria, frequency, urgency, hesitancy, hematuria, flank pain, urinary flow changes, urinary incontinence or retention MSK: +neck pain, no back pain, joint pain, myalgias Skin: No lesions, rashes Neuro: No weakness, numbness, paresthesias, LOC, dizziness, headache All other systems reviewed and are negative. [facility] Past Medical History Attestation statement: The following information was validated with the patient. Source: old records reviewed and nursing notes reviewed Medical History Hx of supraventricular tachycardia Hx of bundle branch block Vitamin D deficiency Hyperlipidemia Obesity due to excess calories Essential hypertension DM2 (diabetes mellitus, type 2) Surgical History Hx of cervical spine surgery Family History Family History Mother Arthritis, rheumatoid Father Alcoholism Suicide Maternal Grandfather Diabetes Maternal Aunt Breast cancer Brother Suicide Paternal Grandfather Diabetes Social History Social History Household Members: Significant Other Alcohol intake: current Alcohol intake frequency: does not drink Patient Tobacco Use Status: Never used Tobacco Current occupational status: employed 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 General: Well appearing, in no acute distress. Skin: Warm, dry, intact. No rashes or lesions. Head: Normocephalic, atraumatic. EENT: Hearing is intact b/l. Conjunctiva clear. Sclera is anicteric. PERRLA. EOM intact. Moist mucous membranes.? Neck: Supple without LAD. + palpable spasm noted to right cervical paraspinal muscle extending over trapezius muscle. Slightly limited ROM of C-spine to right secondary to spasm/pain. Cardiac: Chest wall symmetric. RRR. No MRG. No JVD. Lungs: Normal respiratory effort without accessory muscle use. CTA bilaterally. No rales, rhonchi, or wheezes.? Abdomen: Soft, non-tender, non-distended. No rebound tenderness or guarding. Positive BS x4. Back: No midline spinous or paraspinal tenderness. No step off deformity. Ext: Upper and lower extremities atraumatic, without tenderness, deformity, swelling or erythema. Full ROM throughout. Neuro: AOx3. Normal speech. Strength 5/5 intact throughout. No saddle anesthesia. Sensation intact to light touch. NV intact distally. Ambulating with steady gait. Psych: Appropriate mood and affect. Responds appropriately to questions. Medical Decision Making Medical Decision Making MDM Narrative: 49 year old female with pmhx significant for T2DM and HTN presents to the ED today for evaluation of atraumatic neck pain on waking this morning. Patient hypertensive. vitals otherwise wnl. On exam, palpable spasm noted to right cervical paraspinal muscle extending over trapezius muscle. Slightly limited ROM of C-spine to right secondary to spasm/pain. No midline spinous tenderness or step off deformity. No focal neuro deficits. No nunchal rigidity or meningeal signs. Differential diagnosis includes MSK sprain/strain, spasm. Presentation not consistent with fracture, subluxation, disc herniation, sciatica. Unlikely cord compression, cauda equina, Guillain-Beaumont, epidural abscess. Imaging not warranted at this time. Plan for disposition. Differential Diagnosis Differential Diagnoses: The differential diagnosis associated with the prese ntation includes as above Admission/Observation Not indicated. External Record Review External record reviewed: Inpatient record Prescription Management I considered prescription management with: Other (Flexeril, lidocaine patch) Social Determinants Patient?s care significantly limited by Social Determinants of Health including: Other Social Determinant of Health Critical Care Time Critical Care Time Critical Care Time: No Discharge Plan Discharge Clinical Impression: Cervical paraspinal muscle spasm Patient Disposition: Home, Self-Care Instructions: Muscle Spasm (ED) Additional Instructions: You were evaluated in the Emergency Department today for your neck pain. Your evaluation did not show signs of medical conditions requiring emergent intervention at this time. Use ice several times per day for 20 minutes at a time for the next 48 hours and then change to heat. We recommend you take 600mg ibuprofen every 6 hours or tylenol 650mg every 6 hours as needed for pain. If needed, you can alternate these medications so that you take one medication every 3 hours. For example, at noon take ibuprofen, then at 3pm take tylenol, then at 6pm take ibuprofen. Flexeril is a muscle relaxer. Take this at night as it makes you drowsy. Do not drive, drink alcohol, or operate machinery while taking it. Lidoderm patches are numbing patches. Apply to painful areas. Please schedule an appointment for follow-up with your primary care provider this week for further evaluation of your symptoms. Return to the Emergency Department if you experience worsening back pain, difficulty walking, fevers, numbness, tingling, incontinence, or any other concerning symptoms. In the case of an emergency call 911. Prescriptions: New cyclobenzaprine 5 mg tablet 5 mg PO Q8H Qty: 10 0RF lidocaine [Lidoderm] 5 % adhesive patch,medicated 1 patch topical DAILY Qty: 15 0RF Rx Instructions: leave on most painful area for up to 12 hrs No Action Mounjaro 5 mg/0.5 mL pen injector 5 mg subcut QWEEK Qty: 2 5RF (DME) Dexcom G7 Sensor Device See Rx Instructions .Route Qty: 3 4RF Rx Instructions: As directed change every 10 days lisinopril-hydrochlorothiazide 10-12.5 mg tablet 1 tab PO DAILY (DME) lancets [FreeStyle Lancets] 28 gauge misc See Rx Instructions topical DAILY Qty: 100 Rx Instructions: As directed (DME) blood-glucose meter [FreeStyle [place] Lite] Kit See Rx Instructions .ROUTE .MEDSUPPLY Qty: 1 Rx Instructions: As directed 3 times day (DME) FreeStyle Lite Strips Strip See Rx Instructions Not Applicable .MEDSUPPLY Qty: 10 Rx Instructions: As directed 3 times day (DME) FreeStyle Lite Strips Strip See Rx Instructions .ROUTE .MEDSUPPLY Qty: 100 11RF Rx Instructions: As directed three times a day atorvastatin 20 mg tablet 20 mg PO BEDTIME Qty: 90 3RF Referrals: Abhinav Ross MD [Primary Care Provider] - Stand Alone Forms: Work/School Release Discharge Date/Time: 02/27/24 11:22 Print Language: Citizen Of [place]
[2024-02-27 11:21] VITALS: BP 151/99; PULSE 101; RESP 18; TEMP 37.2; O2SAT 100
== END 2024-02-27 11:22 | disposition home or self-care (01) ==
PROVIDERS: Emergency Provider Emergency Medicine; PCP Internal Medicine
DX: M54.2 Cervicalgia (principal); R25.2 Cramp and spasm; Z79.899 Other long term (current) drug therapy
CPT/HCPCS: 99282; 99283

== ENCOUNTER 2024-03-06 11:31 | Outpatient (REF) | payer OTHER, SELFPAY ==
--- NOTE | ~2024-03-06 | MR_ITS ---
EXAMINATION: MR CERVICAL SPINE WITHOUT CONTRAST CLINICAL INFORMATION: Cervical disc disease. Numbness in the right-sided and. COMPARISON: Cervical spine MRI from 05/01/2019. TECHNIQUE: MRI of the cervical spine was obtained using routine sequences without contrast. FINDINGS: Mild reversal of the normal cervical lordosis. Surgical instrumentation of C5-C6. Moderate degenerative disc disease from C3-C5 and at C6-C7. Mild degenerative disc disease at all additional levels. Associated mixed Modic type discogenic endplate changes including Modic type I discogenic edema at C3-C4. Mild marrow edema within the posterior elements of C6-T1 consistent with degenerative stress reaction. No additional suspicious marrow edema. The vertebral body heights are well-maintained. Chronic minimal T2 hyperintense expansion of the central spinal canal at C7-T1 (0.1 cm). No overt syrinx formation. No additional spinal cord signal abnormalities. Limited evaluation of the soft tissues of the neck without demonstrated abnormalities. The flow voids of the major cervical vessels are maintained. Normal appearance of the cervicomedullary junction and visualized posterior fossa. SPINAL LEVELS: C2-C3: Minimal disc-osteophyte complex. There is moderate right and no left uncovertebral joint arthropathy. There is moderate left and mild right facet joint arthropathy. There is mild right and no left neural foraminal stenosis. There is no spinal canal stenosis. C3-C4: Moderate disc-osteophyte complex with superimposed left central disc protrusion. There is moderate right and mild left uncovertebral joint arthropathy. There is moderate bilateral facet joint arthropathy. There is moderate right and mild left neural foraminal stenosis. There is indentation of the left ventral cord with overall mild spinal canal stenosis. C4-C5: Moderate disc-osteophyte complex. There is moderate bilateral uncovertebral joint arthropathy. There is mild to moderate bilateral facet joint arthropathy. There is moderate to severe right and moderate left neural foraminal stenosis. There is mild spinal canal stenosis. C5-C6: Moderate posterior osseous ridging. There is moderate bilateral uncovertebral joint arthropathy. There is moderate right and mild left facet joint arthropathy. There is moderate right worse than left neural foraminal stenosis. There is mild spinal canal stenosis. C6-C7: Moderate disc-osteophyte complex. There is moderate right and mild left uncovertebral joint arthropathy. There is mild bilateral facet joint arthropathy. There is moderate right and mild left neural foraminal stenosis. There is no overt spinal canal stenosis. C7-T1: Normal annular contour. There is no uncovertebral joint arthropathy. There is mild bilateral facet joint arthropathy. There is no neural foraminal stenosis. There is no spinal canal stenosis. MR/MR cervical spine wo con IMPRESSION: Surgical instrumentation of C5-C6. Moderate multilevel degenerative spondyloarthropathy of the cervical spine as described in detail above. Most notably, there are mild spinal canal stenoses from C3-C6. Moderate neural foraminal stenoses from C3-C7. Electronically signed by: Cain Hernandez DO 03/08/2024 03:10 PM EDT
== END 2024-03-06 11:32 | disposition home or self-care (01) ==
LOC: HO.MRI 11:31
PROVIDERS: Visit Provider Internal Medicine
DX: M50.90 Cervical disc disorder, unspecified, unspecified cervical region (principal)
CPT/HCPCS: 72141

== ENCOUNTER 2024-03-15 13:00 | Outpatient (REF) | payer OTHER, SELFPAY | END 2024-03-15 13:01 | disposition home or self-care (01) | LOC: HO.HOSX 13:00 | PROVIDERS: PCP Internal Medicine; Visit Provider Physician Assistant | DX: M54.12 Radiculopathy, cervical region (principal) | CPT/HCPCS: 72050 ==

== ENCOUNTER 2024-03-15 13:00 | Outpatient (AMB) | payer OTHER, SELFPAY ==
--- NOTE | 2024-03-15 13:01 | A.SPINEOV_ITS ---
Intake Visit Reasons: neck pain/hx of cervical surgery Intake Note: Ms. Pradhan is here today c/o neck pain. Brand Mgr Required: No Allergies No Known Allergies Allergy (Verified 03/15/24 13:05) Assessment & Plan Assessment & Plan (1) Cervical radiculopathy: Code(s): M54.12 - Radiculopathy, cervical region Category: Medical Plan Dear Dr Myers Thank you for referring Mrs Pradhan to our office today. She is a very nice 49-year-old female underwent a C5-6 total disc arthroplasty with Dr. Sawyer back in 2019, who 2-3 weeks ago awoke in the morning with severe pain radiating down her arm into her fingers. She was seen at your office. She has trialed on Decadron which did not seem to give her much help. She has been on Flexeril and oxycodone which seemed to help. She tried ibuprofen and Tylenol as well. She feels like her strength is okay. There is some tingling in her fingers, mostly the middle finger and thumb. She underwent an MRI showing some degenerative changes and was sent today see us for evaluation. To this point the only conservative treatment she had his medication trials and tincture of time. PMH: She is prediabetic, history of hypertension, high cholesterol and total disc arthroplasty Social hx: She has not smoke, drink use any recreational drugs Medications: Lisinopril, Lipitor, Flexeril, oxycodone Allergies: None Physical exam: She has some limitations with strength testing due to pain in her right arm but overall her strength seems to be okay. Reflexes are intact, no Henry's sign. Gait is normal. Imaging review: Cervical MRI and cervical x-rays done here at [facility]. The MRI shows some metallic artifact at C5-6 consistent with her previous implant. I see some mild degeneration at C6-7 but no meaningful stenosis in the foramen that would explain radiculopathy. She does have a disc bulge/herniation at C3-4 but it is on the left. There is some slight crowding of the foramen bilaterally at C4-5. Artificial disc implant looks good on flexion and extension x-rays. Impression: 49-year-old female history of a total disc arthroplasty in [address] Sawyer at C5-6 presents now with 2-3 weeks of acute right arm pain which feels similar to her preoperative pain. It was initially quite intense. It is slightly better now but still remains quite uncomfortable. I reviewed her imaging, there is some chronic degeneration at the C4-5 level which on the right side maybe some crowding in the foramen but it is not severe. Otherwise I do not see anything that would fit to explain her symptoms. I do not see a large herniated disc or anything that looks acute. I think this may just be a radiculitis that will run its course. I do not think she needs any surgery right now. We discussed the option of conservative treatment in the form of therapy and a cortisone injection if she does not turn a corner. I gave her some gabapentin. I would be happy to see her back if the pain does not improve. Thank you for allowing us to care for your patient. The total time spent with this visit with this patient was 45 minutes reviewing history, physical exam, service imaging review, and implementation of treatment plan or further diagnostic testing Bethel Sawyer MD,PhD [facility] Orders: Orders XR cervical spine 4V Today M54.12 - Radiculopathy, cervical region Medications: New gabapentin 300 mg PO TID 90 caps 11RF Coding Level of Care Code New Pt Level 4 (22199) Diagnoses Cervical radiculopathy M54.12
== END 2024-03-15 14:05 | disposition home or self-care (01) ==
PROVIDERS: PCP Internal Medicine; Referring Provider Internal Medicine; Visit Provider Physician Assistant
DX: M54.12 Radiculopathy, cervical region (principal)
CPT/HCPCS: 99204

== ENCOUNTER 2024-05-22 12:22 | Outpatient (REF) | payer OTHER, SELFPAY ==
--- NOTE | ~2024-05-22 | MM_ITS ---
EXAMINATION: MM SCREENING DIGITAL BREAST TOMOSYNTHESIS, BILATERAL CLINICAL INFORMATION: Screening. Asymptomatic. COMPARISON: Mammography: Comparison is made with available priors TECHNIQUE: Digital breast mammography with tomosynthesis is performed in both the craniocaudal and mediolateral oblique views along with computer-aided detection (CAD). FINDINGS: There are scattered areas of fibroglandular density (ACR BI-RADS breast composition Category b). There are no significant masses, abnormal calcifications, or other abnormalities. MM/MM tomosynthesis screening BI IMPRESSION: No mammographic evidence of malignancy. ASSESSMENT: BI-RADS BI-RADS 1 - Negative RECOMMENDATION: Routine annual mammography screening. 1 year F/U This examination should not preclude the clinical evaluation of a suspicious palpable abnormality. This patient's information was entered into a reminder system with a target due date for their next mammogram. Electronically signed by: Malorie Partida DO 05/22/2024 03:06 PM [facility]
--- OUTSIDE RECORDS SUMMARY | 2024-05-23 21:08 | XMS_ITS ---
Author Organization Abhinav Ross MD Address [address] [place] [phone] Care Team Providers Care Fare Collector Name Role Phone Abhinav Ross Primary Care Provider REASON FOR VISIT refill MEDICATIONS Medication SIG (Take, Route, Frequency, Duration) Notes Start Date End Date Status oxyCODONE HCl 5 MG 1 tablet as needed O rally every 6 hrs as needed for 14 days 03/16/2024 Active Cyclobenzaprine HCl 5 MG 1 tablet at bed time as needed Orally twice a day for 10 days 05/26/2021 Active Encounters Encounter Location Date Provider Diagnosis Abhinav Ross MD [address] [place] [address] [place] [phone] 03/16/2024 Abhinav Ross Cervical disc disease M50.90 ASSESSMENTS Encounter Date Diagnosis Assessment Notes Treatment Notes Treatment Clinical Notes 03/16/2024 Cervical disc disease (ICD-10 - M50.90) PLAN OF TREATMENT Medication Medication Name Sig Start Date Stop Date Notes oxyCODONE HCl 5 MG 1 tablet as needed O rally every 6 hrs as needed for 14 days 03/16/2024 Cyclobenzaprine HCl 5 MG 1 tablet at bed time as needed Orally twice a day for 10 days 05/26/2021 Next Appt Details Provider Name:Abhinav garcia, 08/09/2024 07:00:00 AM, [address] [place] [address], [address], [place], [phone], Provider Name:Abhinav garcia, 08/16/2024 08:00:00 AM, [address] [place] [address], [address], [place], [phone],
--- OUTSIDE RECORDS SUMMARY | 2024-05-23 21:08 | XMS_ITS ---
Author Organization Abhinav Ross MD Address [address] [place], [place] [id number] Care Team Providers Care Dial Printer Name Role Phone Abhinav Ross Primary Care Provider [phone] ALLERGIES No Known Allergies REASON FOR VISIT 6 MO F/U BP/ must see MRI results Encounters Encounter Location Date Provider Diagnosis Abhinav Ross MD [address] [place] [phone] 03/15/2024 Abhinav Ross PLAN OF TREATMENT Next Appt Details Provider Name:Abhinav garcia, 08/09/2024 07:00:00 AM, [address] [place] [address], [address] [facility], [place], [place], [phone], Provider Name:Abhinav garcia, 08/16/2024 08:00:00 AM, [address] [place] [address], [address], [place], [place], [phone],
--- OUTSIDE RECORDS SUMMARY | 2024-05-23 21:08 | XMS_ITS ---
Author Organization Abhinav Ross MD Address [address] [place], [place] [phone] Care Team Providers Care Tour Bus Driver/Guide Name Role Phone Abhinav Ross Primary Care Provider ALLERGIES No Known Allergies REASON FOR VISIT Discuss MRI results, Audio EXT [id number] MEDICATIONS Medication SIG (Take, Route, Frequency, Duration) Notes Start Date End Date Status Sudafed Sinus 30-500 MG 2 tablets as nee ded Orally every 6 hrs Not-Taking ProAir HFA 108 (90 Base) MCG/ACT 2 puffs as needed Inhalation every 6 hrs for 30 days 05/28/2019 Not-Taking Cyclobenzaprine HCl 5 MG 1 tablet at bed time as needed Orally twice a day for 10 days 05/26/2021 Active dexAMETHasone 4 MG 1 tablet Orally 3 times a day for 7 days 03/02/2024 Active oxyCODONE HCl 5 MG 1 tablet as needed Orally every 6 hrs as needed for 14 days 03/09/2024 Active Mounjaro 5 MG/0.5ML as directed Subcutaneous Active Atorvastatin Calcium 40 MG 1 tablet Oral ly Once a day for 90 days 08/11/2023 Active Lisinopril-hydroCHLOROthia zide 10-12.5 MG take 1 tablet by mouth every day for 30 days Orally Once a day for 90 days Active FreeStyle Lite Test - TST BLOOD SUGAR DA ANJALI for 90 Active Icy Hot Advanced Pain Relief 16-11 % as directed Externally Act charlie VITAL SIGNS BMI 41.53 kg/m2 03/09/2024 Height 64 in 03/09/2024 Weight 242 lbs 03/09/2024 BP not taken today weight is 242 no temp Encounters Encounter Location Date Provider Diagnosis Abhinav Ross MD [address] [place] [address] [place] [phone] 03/09/2024 Abhinav Ross Cervical disc disease M50.90 ASSESSMENTS Encounter Date Diagnosis Assessment Notes Treatment Notes Treatment Clinical Notes 03/09/2024 Cervical disc disease (ICD-10 - M50.90) to see dr sharpe/ [facility] IS A PATIET WITH DR SHARPE , SHE HAS ALREADY CONTACTED THEM FOR AN APPT. SHE WILL LET US KNOW WHEN THEY HAVE SCHEDULED HER APPT. Patient verbalized understanding of medication and directions for use PLAN OF TREATMENT Medication Medication Name Sig Start Date Stop Date Notes oxyCODONE HCl 5 MG 1 tablet as needed O rally every 6 hrs as needed for 14 days 03/09/2024 Treatment Notes Assessment Notes Cervical disc disease to see dr lenore WEBER IS A PATIET WITH DR SHARPE , SHE HAS ALREADY CONTACTED THEM FOR AN APPT. SHE WILL LET US KNOW WHEN THEY HAVE SCHEDULED HER APPT. Patient verbalized understanding of medication and directions for use Next Appt Details Provider Name:Abhinav garcia, 08/09/2024 07:00:00 AM, [address] [place] [address], [place] [address], [place], [place], [phone], Provider Name:Abhinav garcia, 08/16/2024 08:00:00 AM, [address] [place] [address], [place] [address], [place], [place], [phone], History and Physical Notes * HPI (History of Present Illness) Category Sub-Category Detail Notes Symptom(s) Telehealth Location of [facility]:: [address] [place] [address], [place] [id number] Location of patient:: at add ress listed in demographics for today's visit at work in [place] Patient identification confi rmed using:: Name, , SSN, Insurance information Telehealth method:: Telephon e only. Patient not visible to care provider. Consent:: Patient verbally c onsented to treatment, Patient verbally consented to billing insurance company, Patient informed of any privacy concerns related to method of visit Total time spend talking with patient (m inutes): 20
--- OUTSIDE RECORDS SUMMARY | 2024-05-23 21:09 | XMS_ITS | Patient Health Record ---
Author Organization Abhinav Ross MD Address [address] [place], [place] [id number] Care Team Providers Care Sorter Packer Name Role Phone Abhinav Ross Primary Care Provider ALLERGIES No Known Allergies RESULTS Component Value Reference Range Notes Complete Blood Count Auto Di ff Reviewed date:08/05/2023 11:24:28 AM Interpretation: Performing Lab:[facility], [address] [place] [phone] Notes/Report: White Blood Count 8.2 4.8-10.8 X10*3/uL Red Blood Count 4.33 4.20-5.50 X10*6/uL Hemoglobin 12.2 12.0-16.0 g/dl Hematocrit 37.3 37.0-47.0 % Mean Corpuscular Volume 86.1 80.0-98.0 fL Mean Corpuscular Hemoglobin 28.2 27.0-33.0 pg Mean Corpuscular HGB Conc 32.7 31.0-35.0 g/dl Red Cell Distribution Width 12.5 11.0-16.0 % Platelet Count 275 160-400 X10*3/uL Mean Platelet Volume 9.3 9.4-12.3 fL Neutrophils Percent Auto 61.3 45-73 % Imm Gran Pct Auto 0.5 0.0-0.4 % Lymphocytes Percent Auto 22.2 20-40 % Monocytes Percent Auto 8.8 2-11 % Eosinophils Percent Auto 6.3 0-4 % Basophils Percent Auto 0.9 0-2 % NRBC Pct Auto 0.0 0.0-0.2 /100WBC Neutrophils Absolute Auto 5.0 2.0-8.3 x10*3/u L Imm Gran Abs Auto 0.04 0.00-0.03 X10*3/uL Lymphocytes Absolute Auto 1.8 1.2-4.9 X10*3/u L Monocytes Absolute Auto 0.7 0.1-1.2 X10*3/uL Eosinophils Absolute Auto 0.5 0.0-0.4 X10*3/u L Basophils Absolute Auto 0.1 0.0-0.2 X10*3/uL NRBC Abs Auto 0.000 0.0-0.012 X10*3/uL Comprehensive [place]. Panel Fa st Reviewed date:08/05/2023 11:44:28 AM Interpretation: Performing Lab:[facility], [address] [place] [phone] Notes/Report: Sodium 138 135-145 mmol/L Potassium 4.4 3.3-5.1 mmol/L Chloride 100 96-108 mmol/L Carbon Dioxide 30 22-29 mmol/L Anion Gap 12 12-20 Blood Urea Nitrogen 16 9-16 mg/dL Creatinine 1.11 0.5-1.4 mg/dL Estimated Glomerular Filt Rate 52 NOTE: For -[place]auritan[place] individuals, multiply the result by 1.210. Chronic Kidney Disease: Estimated GFR < 60 mL/min/1.73m2 Severe Kidney Disease: Estimated GFR < 15 mL/min/1.73m2 Glucose Fasting 127 60-99 mg/dL A fasting glucose of 126 mg/dl or greater on more than one occasion is considered diagnostic of diabetes. Calcium 9.7 8.4-10.2 mg/dL Bilirubin Total 1.0 0.0-1.0 mg/dL Aspartate Amino Transferase 12 5-31 U/L Alanine Aminotransferase 10 0-31 U/L Total Protein 7.3 6.5-8.0 g/dL Albumin Level 4.1 3.5-5.0 g/dL Alkaline Phosphatase 112 39-117 U/L Lipid Panel Reviewed date:08/05/2023 11:25:57 AM Interpretation: Performing Lab:[facility], [address] [place] [phone] Notes/Report: Triglycerides 81 <150 mg/dL Desirable Triglyceride: less than 150 mg/dL Borderline High Triglyceride 150-199 mg/dL High Triglyceride: 200-499 mg/dL Very High Triglyceride: greater than or equal to 5OO mg/dL Cholesterol 195 <200 mg/dL Desirable Cholesterol: less than 200 mg/dL Borderline High Cholesterol: 200-239 mg/dL High Cholesterol: greater than 239 mg/dL LDL Cholesterol Calculated 121 <100 mg/dL Desirable LDL: less than 100 mg/dL Near Optimal/Above Optimal LDL: 110-129 mg/dL Borderline High LDL: 130-159 mg/dL High LDL: 160-189 mg/dL Very High LDL: greater than or equal to 190 mg/dL HDL Cholesterol 58 >40 mg/dL Desirable HDL: greater than 40 mg/dL Note: This HDL assay may give artificially low results in patients with liver disease. Microalbumin, Random Reviewed date:08/05/2023 11:23:27 AM Interpretation: Performing Lab:[address] [phone] Notes/Report: Creatinine Urine 132.31 Microalbumin Urine < 5.0 Microalbum/Creatinine Ratio Ur TNP <30 ug/mg cr Unable to calculate albumin/creatinine ratio due to low microalbumin or creatinine result. Hemoglobin A1c Reviewed date:08/05/2023 11:23:59 AM Interpretation: Performing Lab:[facility], [address] [place] [phone] Notes/Report: Hemoglobin A1c % 5.7 <6.0 % Hemoglobin A1C Reference Range Adults: 4.8 - 6.0 % Non diabetic: < 6.0 % Goal: < 7.0 % Additional Action Suggested: > 8.0 % Note: Hemoglobin A1c results are invalid for patients with abnormal amounts of HbF. Blood transfusions may impact the HbA1c concentration in the patient sample. Estimated Average Glucose 117 eAG = Estimated average glucose which is %A1C expressed as average glucose, using the formula of the Q6N-Utsewtu Average Glucose study (ADAG), Diabetes Care, Vol.31,#8, Jan. 2007 UA ClnCatch+Micro w/rflx Cul t Reviewed date:08/05/2023 11:57:13 AM Interpretation: Performing Lab:[facility], [address] [place] [phone] Notes/Report: Urine, Clean Catch Color Urine Yellow Appearance Urine Clear PH 5.5 5.0-9.0 Glucose Urine UA Negative Negative mg/dL Urine Blood Negative Negative Specific [place] - Urine 1.020 1.005-1.025 Urine Protein Negative Neg-Trace mg/dL Urine Ketones Negative Negative mg/dL Nitrite Urine Negative Negative Leukocyte Esterase Urine Trace Negative RBC Urine 0-2 0-2 /HPF WBC Urine 0-5 0-5 /HPF Squamous Epithelial Cell Urine 6-10 0-2 /HPF Bacteria Urine Trace None Seen Hyaline Casts Urine 0-2 0-2 /LPF Ur Preg Test Reviewed date:01/17/2024 10:22:50 AM Interpretation: Performing Lab:[facility], [address] [place] [phone] Notes/Report: Urine NEGATIVE NEGATIVE This test was developed to detect early . False negative results may occur after the 5th - 7th week of when using this test method. If clinically indicated, consider a serum hCG. Glucose, Whole Blood Reviewed date:01/17/2024 10:23:01 AM Interpretation: Performing Lab:[facility], [address] [place] [phone] Notes/Report: Glucose, Whole Blood 127 60-115 mg/dL METER # : [id number] Uvaldo Walden Reviewed date:02/03/2024 12:11:27 PM Interpretation: Performing Lab:[facility], [address] [place] [phone] Notes/Report: Uvaldo Walden See Note Specimen held untested for 24 hours; Call to request Chemistry testing. Liver Panel Reviewed date:02/05/2024 08:50:01 PM Interpretation: Performing Lab:[facility], [address] [place] [phone] Notes/Report: Bilirubin Total 1.4 0.0-1.0 mg/dL Bilirubin Direct 0.4 0.0-0.5 mg/dL Aspartate Amino Transferase 13 5-31 U/L Alanine Aminotransferase 10 0-31 U/L Total Protein 7.5 6.5-8.0 g/dL Albumin Level 4.3 3.5-5.0 g/dL Alkaline Phosphatase 105 39-117 U/L Glucose Fasting Reviewed date:02/03/2024 02:36:37 PM Interpretation: Performing Lab:[facility], [address] [place] [phone] Notes/Report: Glucose Fasting 137 60-99 mg/dL A fasting glucose of 126 mg/dl or greater on more than one occasion is considered diagnostic of diabetes. Lipid Panel with Reflex Reviewed date:02/06/2024 12:39:23 PM Interpretation: Performing Lab:[facility], [address] [place] [phone] Notes/Report: Triglycerides 88 <150 mg/dL Desirable Triglyceride: less than 150 mg/dL Borderline High Triglyceride 150-199 mg/dL High Triglyceride: 200-499 mg/dL Very High Triglyceride: greater than or equal to 5OO mg/dL Cholesterol 142 <200 mg/dL Desirable Cholesterol: less than 200 mg/dL Borderline High Cholesterol: 200-239 mg/dL High Cholesterol: greater than 239 mg/dL LDL Cholesterol Calculated 65 <100 mg/dL Desirable LDL: less than 100 mg/dL Near Optimal/Above Optimal LDL: 110-129 mg/dL Borderline High LDL: 130-159 mg/dL High LDL: 160-189 mg/dL Very High LDL: greater than or equal to 190 mg/dL HDL Cholesterol 60 >40 mg/dL Desirable HDL: greater than 40 mg/dL Note: This HDL assay may give artificially low results in patients with liver disease. Hemoglobin A1c Reviewed date:02/03/2024 12:12:02 PM Interpretation: Performing Lab:[facility], [address] [place] [phone] Notes/Report: Hemoglobin A1c % 6.6 <6.0 % Hemoglobin A1C Reference Range Adults: 4.8 - 6.0 % Non diabetic: < 6.0 % Goal: < 7.0 % Additional Action Suggested: > 8.0 % Note: Hemoglobin A1c results are invalid for patients with abnormal amounts of HbF. Blood transfusions may impact the HbA1c concentration in the patient sample. Estimated Average Glucose 143 eAG = Estimated average glucose which is %A1C expressed as average glucose, using the formula of the V8Y-Sodprbm Average Glucose study (ADAG), Diabetes Care, Vol.31,#8, Jan. 2007 MR cervical spine wo con Reviewed date:03/09/2024 10:04:36 AM Interpretation: Performing Lab: Notes/Report: [address] [address] Magnetic Resonance Report Signed Patient: Gus Pradhan MR#: [id number] 50 : 1975 Acct:[id number] Age/Sex: 49 / F ADM Date: 03/06/24 Loc: HO.MRI Attending Dr: Abhinav Ross MD Ordering Physician: Abhinav Ross MD Date of Service: 03/06/24 Procedure(s): MR cervical spine wo con Accession Number(s): [id number] cc: Abhinav Ross MD EXAMINATION: MR CERVICAL SPINE WITHOUT CONTRAST CLINICAL INFORMATION: Cervical disc disease. Numbness in the right-sided and. COMPARISON: Cervical spine MRI from 05/01/2019. TECHNIQUE: MRI of the cervical spine was obtained using routine sequences without contrast. FINDINGS: Mild reversal of the normal cervical lordosis. Surgical instrumentation of C5-C6. Moderate degenerative disc disease from C3-C5 and at C6-C7. Mild degenerative disc disease at all additional levels. Associated mixed Modic type discogenic endplate changes including Modic type I discogenic edema at C3-C4. Mild marrow edema within the posterior elements of C6-T1 consistent with degenerative stress reaction. No additional suspicious marrow edema. The vertebral body heights are well-maintained. Chronic minimal T2 hyperintense expansion of the central spinal canal at C7-T1 (0.1 cm). No overt syrinx formation. No additional spinal cord signal abnormalities. Limited evaluation of the soft tissues of the neck without demonstrated abnormalities. The flow voids of the major cervical vessels are maintained. Normal appearance of the cervicomedullary junction and visualized posterior fossa. SPINAL LEVELS: C2-C3: Minimal disc-osteophyte complex. There is moderate right and no left uncovertebral joint arthropathy. There is moderate left and mild right facet joint arthropathy. There is mild right and no left neural foraminal stenosis. There is no spinal canal stenosis. C3-C4: Moderate disc-osteophyte complex with superimposed left central disc protrusion. There is moderate right and mild left uncovertebral joint arthropathy. There is moderate bilateral facet joint arthropathy. There is moderate right and mild left neural foraminal stenosis. There is indentation of the left ventral cord with overall mild spinal canal stenosis. C4-C5: Moderate disc-osteophyte complex. There is moderate bilateral uncovertebral joint arthropathy. There is mild to moderate bilateral facet joint arthropathy. There is moderate to severe right and moderate left neural foraminal stenosis. There is mild spinal canal stenosis. C5-C6: Moderate posterior osseous ridging. There is moderate bilateral uncovertebral joint arthropathy. There is moderate right and mild left facet joint arthropathy. There is moderate right worse than left neural foraminal stenosis. There is mild spinal canal stenosis. C6-C7: Moderate disc-osteophyte complex. There is moderate right and mild left uncovertebral joint arthropathy. There is mild bilateral facet joint arthropathy. There is moderate right and mild left neural foraminal stenosis. There is no overt spinal canal stenosis. C7-T1: Normal annular contour. There is no uncovertebral joint arthropathy. There is mild bilateral facet joint arthropathy. There is no neural foraminal stenosis. There is no spinal canal stenosis. MR/MR cervical spine wo con IMPRESSION: Surgical instrumentation of C5-C6. Moderate multilevel degenerative spondyloarthropathy of the cervical spine as described in detail above. Most notably, there are mild spinal canal stenoses from C3-C6. Moderate neural foraminal stenoses from C3-C7. Electronically signed by: Cain Hernandez DO 03/08/2024 03:10 PM EDT Dictated By: Reilly Hernandez DO Signed By: <Electronically signed by Reilly Hernandez DO in OV> 03/08/24 1510 DD/ 1140 TD/TT: 03/06/24 1200 Parks Recreation Coordinator: GIA COLE tomosynthesis screening B I Reviewed date:05/22/2024 04:54:47 PM Interpretation: Performing Lab: Notes/Report: [place] [facility] [address] [place] [address] Mammography Report Signed Patient: Gus Pradhan MR#: [id number] 50 : 1975 Acct:[id number] Age/Sex: 49 / F ADM Date: 05/22/24 Loc: HO.MAMMO Attending Dr: Abhinav Ross MD Ordering Physician: Abhinav Ross MD Results: 1Ne gative Date of Service: 05/22/24 Follow Up: 1 Year From Orig ina Mammogram Procedure(s): MM tomosynthesis screening BI Accession Number(s): [id number] cc: Abhinav Ross MD EXAMINATION: MM SCREENING DIGITAL BREAST TOMOSYNTHESIS, BILATERAL CLINICAL INFORMATION: Screening. Asymptomatic. COMPARISON: Mammography: Comparison is made with available priors TECHNIQUE: Digital breast mammography with tomosynthesis is performed in both the craniocaudal and mediolateral oblique views along with computer-aided detection (CAD). FINDINGS: There are scattered areas of fibroglandular density (ACR BI-RADS breast composition Category b). There are no significant masses, abnormal calcifications, or other abnormalities. MM/MM tomosynthesis screening BI IMPRESSION: No mammographic evidence of malignancy. ASSESSMENT: BI-RADS BI-RADS 1 - Negative RECOMMENDATION: Routine annual mammography screening. 1 year F/U This examination should not preclude the clinical evaluation of a suspicious palpable abnormality. This patient's information was entered into a reminder system with a target due date for their next mammogram. Electronically signed by: Malorie Partida DO 05/22/2024 03:06 PM EST RP Dictated By: Malorie Partida DO Signed By: <Electronically signed by Malorie Partida DO in OV> 05/22/24 1506 DD/ 1230 TD/TT: 05/22/24 1247 Parks Recreation Coordinator: REASON FOR REFERRAL Reason SCREEN FOR COLON CAN CER Diagnosis 1 Screen for colon can cer (Z12.11) Referral Organization Abhinav Ross MD Referring Provider First Name Abhinav Referring Provider Last Name Cody Referring Provider Speciality Internal M edicine Referred Provider CECI LO Referred Provider Specialty Gastroentero logy General Notes Nia Pike 08/18/2023 09:43:45 AM EST > REFERRAL [facility] Patti A 09/12/2023 03:16:55 PM EDT > [facility] NOTE RECD Referral Priority Routine Referral Appointment Date 09/12/2023 Reason Cervical disc doseas e Diagnosis 1 Cervical disc diseas e (M50.90) Referral Organization Abhinav Ross MD Referring Provider First Name Abhinav Referring Provider Last Name Cody Referring Provider Speciality Internal M edicine Referred Provider Dusty Sharpe Referred Provider Specialty Neurosurgery General Notes Melissa Lentz 08:59:33 AM EDT > info faxed Mary Carmen Annette 03/13/2024 01:21:07 PM EDT > patient is aware of appt Referral Priority Routine Referral Appointment Date 03/15/2024 MEDICATIONS Medication SIG (Take, Route, Frequency, Duration) Notes Start Date End Date Status oxyCODONE HCl 5 MG 1 tablet as needed Orally every 6 hrs as needed for 14 days 03/16/2024 Active Cyclobenzaprine HCl 5 MG 1 tablet at bed time as needed Orally twice a day for 10 days 05/26/2021 Active Sudafed Sinus 30-500 MG 2 tablets as nee ded Orally every 6 hrs Not-Taking ProAir HFA 108 (90 Base) MCG/ACT 2 puffs as needed Inhalation every 6 hrs for 30 days 05/28/2019 Not-Taking dexAMETHasone 4 MG 1 tablet Orally 3 times a day for 7 days 03/02/2024 Active Mounjaro 5 MG/0.5ML as directed Subcutaneous [...] 16-11 % as directed Externally Act charlie IMMUNIZATIONS Vaccine Route Administration Date Status Comme nts Fluarix Quadrivalent IM Intramuscular 05/22/2019 Administe red Covid Vaccine Unknown 06/09/2020 Administered Pfizer Covid Vaccine Unknown 06/30/2020 Administered Pfizer SARS-COV-2 Moderna Unknown 06/04/2021 Administered Fluarix Quadrivalent Unknown 06/26/2018 Refused Fluarix Quadrivalent Unknown 05/15/2019 Refused SOCIAL HISTORY Tobacco Use: Social History Observation Description Date Details (start date - stop date) Never Smoker NA - NA Sex Assigned At : Social History Observation Description Sex Assigned At Unknown Tobacco Use/Smoking Question Answer Notes Patient is a nonsmoker Additional Findings: Tobacco Non-User Cu rrent non-smoker, currently using no form of tobacco Alcohol Screen Question Answer Notes Did you have a drink contain ing alcohol in the past year? Yes How often did you have a dri nk containing alcohol in the past year? Monthly or less (1 point) How many drinks did you have on a typical day when you were drinking in the past year? 1 or 2 drinks (0 point) How often did you have 6 or more drinks on one occasion in the past year? Never (0 point) Points 1 Interpretation Negative PROBLEMS Problem Type ICD Code Onset Dates Problem Status W/U Status Risk SNOMED Code Notes Problem Back pain (724.5) Active confirmed Back pain (868923226) Problem Thyroid nodule (E04.1) Active confirmed 061417572 Problem Diverticulitis (K57.92) Active confirmed Diverticulitis (58896472) Problem Essential hypertension (I10) Active confirmed 72080765 Problem Gastroesophageal reflux disease with esophagitis (K21.00) Active confirmed 283928676 Problem Other elevated white blood cell (WBC) count (D72.828) Active confirmed 403754718 Problem Irregular heart beat (I49.9) Active confirmed 868584510 Problem Cervical disc disease (M50.90) Active confirmed 056295503 Problem Carpal tunnel syndrome of right wrist (G56.01) Active confirmed 70632380 Problem Morbid obesity (E66.01) Active confirmed 324500660 Problem Elevated LDL cholesterol level (E78.00) Active confirmed 443826704 Problem Hypertensive emergency (I16.1) Active confirmed 750442091408204 Problem Serum calcium elevated (E83.52) Active confirmed 70141023 Problem SOLITARIO (obstructive sleep apnea) (G47.33) Active confirmed 83045276 Problem Type 2 diabetes mellitus without complication, without long-term current use of insulin (E11.9) Active confirmed 361346157 Problem BMI 38.0-38.9,adult (Z68.38) Active confirmed 488151672 VITAL SIGNS Blood pressure diastolic 96 mm Hg 03/02/2024 saul ght is up 11 poiunds since 09-05-23 Height 64 in 03/09/2024 BP not taken to day weight is 242 no temp Blood pressure systolic 164 mm Hg 03/02/2024 saulg ht is up 11 poiunds since 09-05-23 Weight 242 lbs 03/09/2024 BP not taken to day weight is 242 no temp BMI 41.53 kg/m2 03/09/2024 BP not taken to day weight is 242 no temp PROCEDURES Procedure Date Ordered Date Performed Result Body Sit e Colonoscopy, Screening 01/17/2024 01/17/2024 repeat 5y Encounters Encounter Location Date Provider Diagnosis Abhinav Ross MD [address] [place] [id number] 08/11/2023 Abhinav Ross Essential hypertension I10 ; Annual physical exam Z00.00 ; Type 2 diabetes mellitus without complication, without long-term current use of insulin E11.9 and Depression screening Z13.31 Abhinav Ross MD [address] [place] [id number] 03/15/2024 Abhinav Ross MD [address] [place] [id number] 08/05/2023 Abhinav Ross Blood tests for routine general physical examination Z00.00 ; Essential hypertension I10 ; Type 2 diabetes mellitus without complication, without long-term current use of insulin E11.9 and Elevated LDL cholesterol level E78.00 Abhinav Ross MD [address] [place] [id number] 02/03/2024 Abhinav Ross Type 2 diabetes mellitus without complication, without long-term current use of insulin E11.9 and Elevated LDL cholesterol level E78.00 Abhinav Ross MD [address] [place] [id number] 03/02/2024 Abhinav Ross Cervical disc diseas e M50.90 and Type 2 diabetes mellitus without complication, without long-term current use of insulin E11.9 Abhinav Ross MD [address] [place] [id number] 09/06/2023 Abhinav Ross MD [address] [place] [id number] 02/28/2024 Abhinav Ross MD [address] [place] [id number] 03/06/2024 Abhinav Ross Cervical disc diseas e M50.90 Abhinav Ross MD [address] [place] [id number] 03/09/2024 Abhinav Ross MD [address] [place] [id number] 03/16/2024 Abhinav Ross Cervical disc diseas e M50.90 Abhinav Ross MD [address] [place] [id number] 09/05/2023 Abhinav Ross Acute COVID-19 U07.1 Abhinav Ross MD [address] [place] [id number] 03/09/2024 Abhinav Ross Cervical disc diseas e M50.90 ASSESSMENTS Encounter Date Diagnosis Assessment Notes Treatment Notes Treatment Clinical Notes 08/11/2023 Annual physical exam (ICD-10 - Z00.00) labs reviewed and discussed with patient, referral to [facility] gastro for colonoscopy/REFERAL ENTERED FOR [facility], WILL FAX WHEN NOTE LOCKED 08/11/2023 Essential hypertension (ICD-10 - I10) stable, will continue current regiment 08/05/2023 Blood tests for routine general physical examination (ICD-10 - Z00.00) 02/03/2024 Elevated LDL cholesterol level (ICD-10 - E78.00) 02/03/2024 Type 2 diabetes mellitus without complication, without long-term current use of insulin (ICD-10 - E11.9) 03/02/2024 Cervical disc disease (ICD-10 - M50.90) watch sugars as they will probalby go up and will probably need referral back to dr sharpe/ order faxed to to [facility] CS dept. patient verbalized understanding of medication and issues related, pendng diganostic testing 03/06/2024 Cervical disc disease (ICD-10 - M50.90) 03/16/2024 Cervical disc disease (ICD-10 - M50.90) 09/05/2023 Acute COVID-19 (ICD-10 - U07.1) hold atorvastatin and monjourno, patient verbalized understanding of medication and directions for use 03/09/2024 Cervical disc disease (ICD-10 - M50.90) to see dr sharpe/ GUS IS A PATIET WITH DR SHARPE , SHE HAS ALREADY CONTACTED THEM FOR AN APPT. SHE WILL LET US KNOW WHEN THEY HAVE SCHEDULED HER APPT. Patient verbalized understanding of medication and directions for use 08/11/2023 Type 2 diabetes mellitus without complication, without long-term current use of insulin (ICD-10 - E11.9) stable, will continue current regiment 08/05/2023 Essential hypertension (ICD-10 - I10) 03/02/2024 Type 2 diabetes mellitus without complication, without long-term current use of insulin (ICD-10 - E11.9) 08/11/2023 Depression screening (ICD-10 - Z13.31) negative screen 08/05/2023 Type 2 diabetes mellitus without complication, without long-term current use of insulin (ICD-10 - E11.9) 08/05/2023 Elevated LDL cholesterol level (ICD-10 - E78.00) PLAN OF TREATMENT Pending Test Test Name Order Date SENSE NERVE CONDUCTION TEST 04/27/2019 MRI CERVICAL SPINE NO CONTRAST 4 MAMMOGRAM DIGITAL BILATERAL SCREEN 10/11 US thyroid 10/24/2020 Future Test Test Name Order Date US THYROID 06/27/2020 Next Appt Details Provider Name:Abhinav garcia, 08/09/2024 07:00:00 AM, [address] [place] [address], [address], [phone], Provider Name:Abhinav Pisano ier, 08/16/2024 08:00:00 AM, [address] [place] [address], [address], [phone], Insurance Providers Payer Name Payer Address Payer Phone Subscriber Number Group Number Insured Name Patient Relationship to Insured Coverage Start Date Coverage End Date [employer] [address] [address] [place] [phone] [id number] Gus Pradhan Self - patient is the insured MEDICAL (GENERAL) HISTORY Medical History History ICD Code 09/06/13 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
== END 2024-05-22 12:23 | disposition home or self-care (01) ==
LOC: HO.MAMMO 12:22
PROVIDERS: PCP Internal Medicine; Visit Provider Internal Medicine
DX: Z12.31 Encounter for screening mammogram for malignant neoplasm of breast (principal)
CPT/HCPCS: 77063; 77067

== ENCOUNTER → 2024-05-22 12:30 | Outpatient (BNV) | payer OTHER, SELFPAY | PROVIDERS: PCP Internal Medicine; Visit Provider Internal Medicine | DX: Z12.31 Encounter for screening mammogram for malignant neoplasm of breast (principal) | CPT/HCPCS: 77063; 77067 ==

== ENCOUNTER 2024-11-07 09:08 | Outpatient (REF) | payer OTHER, SELFPAY ==
[2024-11-07 09:36] LABS: MANUAL DIFF FLAG NO
--- OUTSIDE RECORDS SUMMARY | 2024-11-07 09:44 | XMS_ITS ---
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 Name Role Phone Abhinav Ross Primary Care Provider REASON FOR VISIT refill Medications Medication SIG (Take, Route, Frequency, Duration) Notes Start Date End Date Status oxyCODONE HCl 5 MG 1 tablet as needed O rally every 6 hrs as needed for 14 days 03/16/2024 Active Cyclobenzaprine HCl 5 MG 1 tablet at bed time as needed Orally twice a day for 10 days 05/26/2021 Active Encounters Encounter Location Date Provider Diagnosis Abhinav Ross MD [address] [facility] [address] [place] [phone] 03/16/2024 Abhinav Ross Cervical disc disease M50.90 Assessments Encounter Date Diagnosis (ICD Code) Assessment Notes Treatment Notes Treatment Clinical Notes Section Notes 03/16/2024 Cervical disc disease (ICD-10 - M50.90) Plan Of Treatment Medication Medication Name Sig Start Date Stop Date Notes oxyCODONE HCl 5 MG 1 tablet as needed O rally every 6 hrs as needed for 14 days 03/16/2024 Cyclobenzaprine HCl 5 MG 1 tablet at bed time as needed Orally twice a day for 10 days 05/26/2021 Next Appt Details Provider Name:Abhinav garcia, 11/12/2024 03:00:00 PM, [address], [address], [place], [place], [phone], Progress Notes * Maribel CHAVEZRashardOB: 4 (49 yo F)Acc No.[id number]:03/16/2024 Patient:Ema Jaimes :1975???Age:49 Y???Sex:Female Address:[address] [place] [address], [place] [address] * Refills? Refill oxyCODONE HCl Tablet, 5 MG, Orally, 20, 1 tablet as needed, every 6 hrs as needed, 14 days, Refills=0 Refill Cyclobenzaprine HCl Tablet, 5 MG, Orally, 20 Tablet, 1 tablet at bedtime as needed, twice a day, 10 days * true * Date:? Generated for Jacob young/Ed/Murphyitting on:?11/07/2024 09:44 AM EDT
[2024-11-07 09:46] LABS: Appearance Urine Clear; Color Urine Yellow; Glucose Urine UA Negative (Negative); Leukocyte Esterase Urine Small (1+) (Negative); Nitrite Urine Negative (Negative); PH 6.5 (5.0-9.0); UMIC TRIGGER UACC YES; Urine Blood Trace (Negative); Urine Ketones Trace mg/dL (Negative); Urine Protein Negative (Neg-Trace)
[2024-11-07 09:49] LABS: Basophils Absolute Auto 0.1 X10*3/uL (0.0-0.2); Basophils Percent Auto 0.9 % (0-2); Eosinophils Absolute Auto 0.3 X10*3/uL (0.0-0.4); Eosinophils Percent Auto 4.4 % (0-4); Hematocrit 36.5 % (37.0-47.0); Hemoglobin 11.8 g/dl (12.0-16.0); Imm Gran Abs Auto 0.05 X10*3/uL (0.00-0.03); Imm Gran Pct Auto 0.7 % (0.0-0.4); Lymphocytes Absolute Auto 1.3 X10*3/uL (1.2-4.9); Lymphocytes Percent Auto 19.4 % (20-40); Mean Corpuscular HGB Conc 32.3 g/dl (31.0-35.0); Mean Corpuscular Hemoglobin 28.4 pg (27.0-33.0); Mean Corpuscular Volume 87.7 fL (80.0-98.0); Mean Platelet Volume 9.4 fL (9.4-12.3); Monocytes Absolute Auto 0.5 X10*3/uL (0.1-1.2); Monocytes Percent Auto 7.7 % (2-11); Neutrophils Absolute Auto 4.5 x10*3/uL (2.0-8.3); Neutrophils Percent Auto 66.9 % (45-73); Platelet Count 246 X10*3/uL (160-400); Red Blood Count 4.16 X10*6/uL (4.20-5.50); Red Cell Distribution Width 12.5 % (11.0-16.0); White Blood Count 6.8 X10*3/uL (4.8-10.8)
[2024-11-07 10:00] LABS: Estimated Average Glucose 151 mg/dL; Hemoglobin A1C 161.6446 umol/L; Hemoglobin A1c % 6.9 % (<6.0); Total Hemoglobin (HGBA1C) 3110.3468 umol/L
[2024-11-07 10:02] LABS: Alanine Aminotransferase 13 U/L (0-31); Albumin Level 4.5 g/dL (3.5-5.0); Alkaline Phosphatase 109 U/L (39-117); Anion Gap 11 (12-20); Aspartate Amino Transferase 19 U/L (5-31); Bilirubin Total 1.1 mg/dL (0.0-1.0); Blood Urea Nitrogen 12 mg/dL (9-16); Calcium 9.6 mg/dL (8.4-10.2); Carbon Dioxide 28 mmol/L (22-29); Chloride 105 mmol/L (96-108); Cholesterol 183 mg/dL (<200); Estimated Glomerular Filt Rate > 60; Glucose Fasting 147 mg/dL (60-99); HDL Cholesterol 57 mg/dL (>40); LDL Cholesterol Calculated 108 mg/dL (<100); Potassium 4.2 mmol/L (3.3-5.1); Sodium 140 mmol/L (135-145); Total Protein 7.3 g/dL (6.5-8.0); Triglycerides 93 mg/dL (<150)
[2024-11-07 10:03] LABS: Bacteria Urine 1+ (None Seen); Hyaline Casts Urine 0-2 /LPF (0-2); RBC Urine 0-2 /HPF (0-2); UACC Culture Trigger YES; WBC Urine 0-5 /HPF (0-5)
[2024-11-07 11:03] LABS: Microalbum/Creatinine Ratio Ur 3.3 ug/mg cr (<30)
== END 2024-11-07 09:09 | disposition home or self-care (01) ==
LOC: HO.LAB 09:08
PROVIDERS: PCP Internal Medicine; Visit Provider Internal Medicine
DX: Z00.00 Encounter for general adult medical examination without abnormal findings (principal); I10 Essential (primary) hypertension; E11.9 Type 2 diabetes mellitus without complications
CPT/HCPCS: 36415; 80053; 80061; 81001; 82043; 82570; 83036; 85025; 87086